=== PATIENT | female | born 1955 | race Caucasian/White ===

== ENCOUNTER 2019-06-03 09:01 | Inpatient (IN) | payer OTHER, MEDICARE ==
--- NOTE | 2019-06-03 09:11 | EDM.PDOC ---
"ED HPI GENERAL MEDICAL PROBLEM - General Chief Complaint: Respiratory Problem Stated Complaint: PER BECKY BUSTILLO Time Seen by Provider: 06/03/19 09:09 Source of Information: Reports: Patient, Old Records, Provider (Becky Bustillo NP ), RN, RN Notes Reviewed History Limitations: Reports: No Limitations - History of Present Illness INITIAL COMMENTS - FREE TEXT/NARRATIVE: Pt sent from clinic by wheelchair with supplemental oxygen by Becky Bustillo NP with report that pt has been experiencing progressively worsening shortness of breath for the past week or two. Pt had pneumonia and COPD exacerbation about a month ago at which time a chest x-ray show a right perihilar mass with recommendation for a follow up CT. Becky Bustillo NP reported to me via phone that the pt was due to have the CT Chest next week, but presented to the clinic today in respiratory distress with oxygen saturations of 87% on room air. Pt reports feeling flushed and hot this morning but hasn't measured her temperature. Pt report sharp chest pain with cough and deep inspiration for the last several days. Today she develops an intense ache between the shoulder blades. She admits to a cough with green sputum. She denies increasing edema, orthopnea, or palpitations. Denies syncope, but reports the she coughs so hard that she becomes lightheaded. Onset: Gradual Duration: Chronic, Constant, Getting Worse Location: Reports: Chest Quality: Reports: Ache Severity: Moderate Improves with: Reports: None Worsens with: Reports: Breathing Associated Symptoms: Reports: No Other Symptoms - Related Data Allergies Allergy/AdvReac Type Severity Reaction Status Date / Time acetaminophen Allergy Cannot Verified 06/03/19 09:12 [From Darvocet-N] Remember amoxicillin [Amoxicillin] Allergy Rash Verified 06/03/19 09:12 codeine Allergy Cannot Verified 06/03/19 09:12 Remember nitrofurantoin Allergy Cannot Verified 06/03/19 09:12 [From Macrobid] Remember nitrofurantoin Allergy Cannot Verified 06/03/19 09:12 macrocrystalline Remember [From Macrobid] propoxyphene napsylate Allergy Cannot Verified 06/03/19 09:12 [From Darvocet-N] Remember sulfamethoxazole Allergy Rash Verified 06/03/19 09:12 [From Bactrim] tramadol Allergy Cannot Verified 06/03/19 09:12 Remember trimethoprim [From Bactrim] Allergy Rash Verified 06/03/19 09:12 Home Meds: Home Meds Albuterol [Proair HFA] 2 puff INH Q4HR PRN 03/19/14 [History] Albuterol [Proventil Neb Soln] 1 unit INH Q4HR PRN 03/19/14 [History] Ascorbate Calcium/Bioflavonoid [Mariya-C 500 MG] 1 tab PO DAILY 03/19/14 [History ] Ca Carbonate/Vitamin D3/Vit K [Calcium + D Soft Chewable Tab] 1 tab PO DAILY [History] Ibuprofen [Motrin] 2 tab PO Q6HR PRN 03/19/14 [History] Lisinopril 10 mg PO DAILY 03/19/14 [History] Multivitamin [Multivitamins] 1 tab PO DAILY 03/19/14 [History] [place]-3/DHA/Epa/Fish Oil [Fish Oil 1,000 mg Softgel] 2 cap PO DAILY 03/19/14 [ History] Pantoprazole [Protonix] 40 mg PO DAILY 03/19/14 [History] Tolterodine Tartrate [Detrol LA] 4 mg PO DAILY 03/19/14 [History] Triamcinolone Acetonide [Kenalog 0.1% Oint] 80 gm TOP ASDIRECTED PRN 03/19/14 [ History] Aspirin [Ecotrin EC] 81 mg PO DAILY 06/03/19 [History] Benzonatate [Tessalon Perle] 2 cap PO Q6H PRN 06/03/19 [History] Boric Acid 1 applic TOP ASDIRECTED PRN 06/03/19 [History] Chlorthalidone 12.5 mg PO DAILY 06/03/19 [History] Clotrimazole [Lotrimin AF 1% Crm] 1 applic TOP ASDIRECTED PRN 06/03/19 [History] Gluc HCl/Csa/Brianna Hy/Hyalur Ac [Glucosamine Chondroitin] 2 cap PO DAILY [History] L.acidoph,Paracasei, B.lactis [Probiotic] 1 cap PO DAILY 06/03/19 [History] Past Medical History HEENT History: Reports: Hard of Hearing, Impaired Vision Cardiovascular History: Reports: Hypertension Respiratory History: Reports: COPD, SOB, Other (See Below) (Chronic terminal gauger tobacco/cigarette smoker. Right boni-hilar lung mass.) Musculoskeletal History: Reports: Other (See Below) (Chronic peripheral edema) Endocrine/Metabolic History: Reports: Obesity/BMI 30+ Social & Family History - Family History Family Medical History: Noncontributory - Tobacco Use Smoking Status *Q: Heavy Tobacco Smoker Tobacco Use Within Last Twelve Months: Cigarettes - Alcohol Use Alcohol Use History: No - Recreational Drug Use Recreational Drug Use: No - Living Situation & Occupation Living situation: Reports: with Family Occupation: Retired ED ROS GENERAL - Review of Systems Review Of Systems: ROS reveals no pertinent complaints other than HPI. ED EXAM, GENERAL - Physical Exam Exam: See Below Exam Limited By: No Limitations General Appearance: Alert, Mild Distress (Respiratory), Obese, Other ( Chronically ill, currently uncomfortable but non-toxic appearing) Eye Exam: Bilateral Eye: Normal Inspection Ears: Normal External Exam, Hearing Loss (Chronic/stable) Nose: Normal Inspection, Normal Mucosa, No Blood Throat/Mouth: Normal Lips, Normal Oropharynx, Normal Voice, No Airway Compromise Head: Atraumatic, Normocephalic Neck: Normal Inspection, Supple, Non-Tender, Full Range of Motion. No: Lymphadenopathy (L), Lymphadenopathy (R) Respiratory/Chest: Respiratory Distress, Decreased Breath Sounds, Crackles, Wheezing, Accessory Muscle Use (Labored breathing) Cardiovascular: Regular Rate, Rhythm GI/Abdominal: Normal Bowel Sounds, Soft, Non-Tender, Other (Benign obese abdomen ) (Female) Exam: Deferred Rectal (Female) Exam: Deferred Back Exam: Normal Inspection. No: CVA Tenderness (L), CVA Tenderness (R) Extremities: Normal Range of Motion, Non-Tender, Normal Capillary Refill, Pedal Edema (Chronic/stable per pt.). No: Joint Swelling Neurological: Alert, Oriented, CN II-XII Intact, Normal Cognition, No Motor/ Sensory Deficits Psychiatric: Normal Affect, Normal Mood Skin Exam: Warm, Dry, Intact, Normal Color, No Rash EKG INTERPRETATION EKG Date: 06/03/19 Time: 09:40 Rhythm: Other (SR) Rate (Beats/Min): 86 [place]: Normal P-Wave: Present QRS: Normal ST-T: Normal QT: Normal Comparison: NA - No Prior EKG EKG Interpretation Comments: No acute ischemic changes. Course - Vital Signs Last Recorded V/S: Last Vital Signs Temp 100 F 06/03/19 09:03 Pulse 90 06/03/19 09:32 Resp 28 H 06/03/19 09:03 BP 148/75 H 06/03/19 09:03 Pulse Ox 94 L 06/03/19 09:03 Oxygen saturation: 87% on room air. - Orders/Labs/Meds Orders: Active Orders 24 hr Category Date Time Status EKG 12 Lead [EKG Documentation Completion] [] STAT Care 06/03/19 09:11 Active Peripheral IV Care [RC] . DIRECTED Care 06/03/19 09:12 Active RT Aerosol Therapy [RC] ASDIRECTED Care 06/03/19 09:12 Active Chest w Cont [CT] Urgent Exams 06/03/19 10:17 Taken CULTURE BLOOD [BC] Stat Lab 06/03/19 09:17 Ordered CULTURE BLOOD [BC] Stat Lab 06/03/19 09:28 Received Levofloxacin/Dextrose 5%-Water [Levaquin in D5W 750 MG/ Med 06/03/19 10:17 Active 150 ML] 750 mg Premix Bag 1 bag IV ONETIME Sodium Chloride 0.9% [Saline Flush] Med 06/03/19 09:12 Active 10 ml FLUSH ASDIRECTED PRN Blood Culture x2 Reflex Set [OM.PC] Stat Oth 06/03/19 09:17 Ordered Peripheral IV Insertion Adult [OM.PC] Stat Oth 06/03/19 09:11 Ordered Medication Orders Levofloxacin/Dextrose 750 mg/ (Premix) 150 mls @ 100 mls/hr IV ONETIME ONE Stop: 06/03/19 11:46 Last Admin: 06/03/19 10:48 Dose: 100 mls/hr Sodium Chloride (Saline Flush) 10 ml FLUSH ASDIRECTED PRN PRN Reason: Keep Vein Open Last Admin: 06/03/19 09:31 Dose: 10 ml Labs: Laboratory Tests 06/03/19 06/03/19 06/03/19 Range/Units 09:38 09:38 09:38 WBC 13.2 H (5.0-10.0) 10^3/uL RBC 4.84 (4.2-5.4) 10^6/uL Hgb 14.6 (12.0-16.0) g/dL Hct 44.4 (37.0-47.0) % MCV 91.7 (80-100) fL MCH 30.2 (27.0-34.0) pg MCHC 32.9 L (33.0-35.0) g/dL Plt Count 253 (150-450) 10^3/uL Neut % (Auto) 71.1 (42.2-75.2) % Lymph % (Auto) 18.7 L (20.5-50.1) % [place] % (Auto) 9.5 H (2-8) % Eos % (Auto) 0.5 L (1.0-3.0) % Baso % (Auto) 0.2 (0.0-1.0) % D-Dimer, Quantitative 185 (0-400) ng/mL Sodium 133 L (135-145) mmol/L Potassium 3.6 (3.6-5.0) mmol/L Chloride 94 L (101-111) mmol/L Carbon Dioxide 27.0 (21.0-31.0) mmol/L Anion Gap 15.6 BUN 17 (7-18) mg/dL Creatinine 0.7 (0.6-1.3) mg/dL Est Cr Clr Drug Dosing 72.10 mL/min Estimated GFR (MDRD) > 60 BUN/Creatinine Ratio 24.28 Glucose 110 H (74-105) mg/dL Lactic Acid (0.5-2.2) mmol/L Calcium 9.0 (8.4-10.2) mg/dl Total Bilirubin 0.9 (0.2-1.0) mg/dL AST 22 (10-42) IU/L ALT 21 (10-60) IU/L Alkaline Phosphatase 46 (42-121) IU/L Troponin I < 0.02 (0.00-0.02) ng/ml B-Natriuretic Peptide 72 (0-100) pg/ml Total Protein 7.4 (6.7-8.2) g/dl Albumin 4.3 (3.2-5.5) g/dl Globulin 3.1 Albumin/Globulin Ratio 1.39 Lipase 24 (22-51) U/L 06/03/19 Range/Units 09:38 WBC (5.0-10.0) 10^3/uL RBC (4.2-5.4) 10^6/uL Hgb (12.0-16.0) g/dL Hct (37.0-47.0) % MCV (80-100) fL MCH (27.0-34.0) pg MCHC (33.0-35.0) g/dL Plt Count (150-450) 10^3/uL Neut % (Auto) (42.2-75.2) % Lymph % (Auto) (20.5-50.1) % [place] % (Auto) (2-8) % Eos % (Auto) (1.0-3.0) % Baso % (Auto) (0.0-1.0) % D-Dimer, Quantitative (0-400) ng/mL Sodium (135-145) mmol/L Potassium (3.6-5.0) mmol/L Chloride (101-111) mmol/L Carbon Dioxide (21.0-31.0) mmol/L Anion Gap BUN (7-18) mg/dL Creatinine (0.6-1.3) mg/dL Est Cr Clr Drug Dosing mL/min Estimated GFR (MDRD) BUN/Creatinine Ratio Glucose (74-105) mg/dL Lactic Acid 1.2 (0.5-2.2) mmol/L Calcium (8.4-10.2) mg/dl Total Bilirubin (0.2-1.0) mg/dL AST (10-42) IU/L ALT (10-60) IU/L Alkaline Phosphatase (42-121) IU/L Troponin I (0.00-0.02) ng/ml B-Natriuretic Peptide (0-100) pg/ml Total Protein (6.7-8.2) g/dl Albumin (3.2-5.5) g/dl Globulin Albumin/Globulin Ratio Lipase (22-51) U/L Meds: Medications Generic Name Dose Route Start Last Admin Trade Name Freq PRN Reason Stop Dose Admin Levofloxacin/Dextrose 750 mg/ 150 mls @ 100 mls/hr 06/03/19 10:17 06/03/19 10 :48 Premix IV 06/03/19 11:46 100 mls/hr ONETIME ONE Administration Sodium Chloride 10 ml 06/03/19 09:12 06/03/19 09:31 Saline Flush FLUSH 10 ml ASDIRECTED PRN Administration Keep Vein Open Discontinued Medications Generic Name Dose Route Start Last Admin Trade Name Freq PRN Reason Stop Dose Admin Albuterol/Ipratropium 3 ml 06/03/19 09:12 06/03/19 09:31 Duoneb 3.0-0.5 Mg/3 Ml NEB 06/03/19 09:13 3 ml ONETIME ONE Administration Albuterol/Ipratropium Confirm 06/03/19 09:17 06/03/19 09:31 Duoneb 3.0-0.5 Mg/3 Ml Administered 06/03/19 09:18 Not Given Dose 3 ml .ROUTE .STK-MED ONE Iopamidol 75 ml 06/03/19 10:16 06/03/19 10:36 Isovue-300 (61%) IVPUSH 06/03/19 10:17 75 ml ONETIME ONE Administration Methylprednisolone Sodium Succinate 125 mg 06/03/19 09:12 06/03/19 09:31 Solu-Medrol IVPUSH 06/03/19 09:13 125 mg ONETIME ONE Administration - Radiology Interpretation Free Text/Narrative:: [facility] Final Radiology Report Call: [phone] assistance Online chat: [email or web address] Name: JONO BENÍTEZ Age: 64Years F Date: 06/03/2019 SSN: -- : [id number] Study: CT CHEST W Requesting Physician: ANDREY IZQUIERDO Images: [id number] Addl Studies: Provided Clinical History: Contrast: With Contrast Medium: Isovue 300 Contrast Amount: 75 mL Contrast Method: IV Page 1 of 2 EXAM: CT Chest With Contrast EXAM DATE/TIME: 06/03/2019 10:36 AM CLINICAL HISTORY: 64 years old, female; Other: Cough, hypoxia, abn cxr, recent x-ray showing RT perihilar mass TECHNIQUE: Imaging protocol: Computed tomography of the chest with intravenous contrast. Radiation optimization: All CT scans at this facility use at least one of these dose optimization techniques: automated exposure control; mA and/or kV adjustment per patient size (includes targeted exams where dose is matched to clinical indication); or iterative reconstruction. Contrast material: ISOVUE 300; Contrast volume: 75 ml; Contrast route: IV; COMPARISON: CR CHEST PA/LAT 09/28/2012 12:15 PM FINDINGS: Lungs: Minimal patchy groundglass opacity in the right upper lobe anteriorly and in the right perihilar region which may reflect minimal infection or inflammation. No dense consolidation or stefany pulmonary edema. Central bronchial wall thickening minimal subpleural linear atelectasis or scar in the right middle lobe and right base posteriorly. Pleural space: Unremarkable. No pneumothorax. No pleural effusion. Heart: Coronary atherosclerosis. Heart size is normal. No pericardial effusion. Mediastinum: Small hiatal hernia. Central pulmonary arteries are patent. Aorta: Additional atherosclerotic change in the upper normal aorta Lymph nodes: Unremarkable. No enlarged lymph nodes. JONO BENÍTEZ | Final Radiology Report CONFIDENTIALITY STATEMENT This report is intended only for use by the referring physician, and only in accordance with law. If you received this in error, call [phone]. Page 2 of 2 Bones/joints: No acute osseous abnormality. No concerning osseous lesion. Multilevel degenerative disc disease. Soft tissues: Unremarkable. Pancreas: Diffuse pancreatic atrophy. IMPRESSION: 1. Minimal patchy groundglass opacity in the right upper lobe and right perihilar region which may reflect minimal infection or inflammation, superimposed on central bronchial wall thickening suggesting bronchitis. 2. Coronary and aortic atherosclerosis. Thank you for allowing us to participate in the care of your patient. Dictated and Authenticated by: Suzie Adam MD 06/03/2019 10:59 AM Central Time ([place] & [place]) Departure - Departure Time of Disposition: 10:55 (admitted to Dr. Colmenares) Disposition: Admitted As Inpatient 65 Condition: Fair, Serious Clinical Impression: Acute exacerbation of chronic obstructive pulmonary disease (COPD), Acute respiratory failure with hypoxia - Discharge Information *PRESCRIPTION DRUG MONITORING PROGRAM REVIEWED*: Not Applicable *COPY OF PRESCRIPTION DRUG MONITORING REPORT IN PATIENT FELICE: Not Applicable Forms: ED Department Discharge - My Orders Last 24 Hours: My Active Orders 06/03/19 09:11 EKG 12 Lead [EKG Documentation Completion] [RC] STAT Peripheral IV Insertion Adult [OM.PC] Stat 06/03/19 09:12 Peripheral IV Care [RC] . DIRECTED RT Aerosol Therapy [RC] ASDIRECTED Sodium Chloride 0.9% [Saline Flush] 10 ml FLUSH ASDIRECTED PRN 06/03/19 09:17 CULTURE BLOOD [BC] Stat Blood Culture x2 Reflex Set [OM.PC] Stat 06/03/19 09:28 CULTURE BLOOD [BC] Stat 06/03/19 10:17 Chest w Cont [CT] Urgent Levofloxacin/Dextrose 5%-Water [Levaquin in D5W 750 MG/150 ML] 750 mg Premix Bag 1 bag IV ONETIME - Assessment/Plan Last 24 Hours: My Active Orders 06/03/19 09:11 EKG 12 Lead [EKG Documentation Completion] [RC] STAT Peripheral IV Insertion Adult [OM.PC] Stat 06/03/19 09:12 Peripheral IV Care [RC] . DIRECTED RT Aerosol Therapy [RC] ASDIRECTED Sodium Chloride 0.9% [Saline Flush] 10 ml FLUSH ASDIRECTED PRN 06/03/19 09:17 CULTURE BLOOD [BC] Stat Blood Culture x2 Reflex Set [OM.PC] Stat 06/03/19 09:28 CULTURE BLOOD [BC] Stat 06/03/19 10:17 Chest w Cont [CT] Urgent Levofloxacin/Dextrose 5%-Water [Levaquin in D5W 750 MG/150 ML] 750 mg Premix Bag 1 bag IV ONETIME"
[2019-06-03] MEDS ORDERED: methylPREDNISolone Sodium Succinate 125 MG/2 ML SDV IVPUSH ONE (09:12)
[2019-06-03] MEDS ORDERED: Albuterol/Ipratropium 3.0-0.5 MG/3 ML Neb Soln NEB ONE (09:12)
[2019-06-03] MEDS ORDERED: Sodium Chloride 0.9% 10 ML Syringe FLUSH PRN (09:12)
[2019-06-03] MEDS ORDERED: Albuterol/Ipratropium 3.0-0.5 MG/3 ML Neb Soln ONE (09:17)
[2019-06-03 10:11] LABS: ANION GAP 15.6; CHLORIDE,CL 94 mmol/L (101-111); SODIUM,NA 133 mmol/L (135-145)
[2019-06-03] MEDS ORDERED: Iopamidol 612 MG/ML 75 ML Bottle IVPUSH ONE (10:16)
[2019-06-03] MEDS ORDERED: Levofloxacin/Dextrose 5%-Water 750 MG in Premix Bag 1 BAG IV ONE (10:17)
[2019-06-03] MEDS ORDERED: Benzonatate 100 MG Cap PO PRN (12:24)
[2019-06-03] MEDS ORDERED: Ibuprofen 400 MG Tab PO PRN (12:24)
[2019-06-03] MEDS ORDERED: Docusate Sodium 100 MG Cap PO PRN (12:28)
[2019-06-03] MEDS ORDERED: Ondansetron 4 MG/2 ML SDV IVPUSH PRN (12:28)
[2019-06-03] MEDS ORDERED: Ondansetron 4 MG Tab.DIS PO PRN (12:28)
[2019-06-03] MEDS ORDERED: Acetaminophen 325 MG Tab PO PRN (12:28)
--- NOTE | 2019-06-03 12:37 | PCM.HP ---
H&P History of Present Illness - General Date of Service: 06/03/19 Admit Problem/Dx: Admission Diagnosis/Problem Admission Diagnosis/Problem COPD, Mild chronic obstructive pulmonary disease Source of Information: Patient, Provider - History of Present Illness Initial Comments - Free Text/Narative: 64-year-old lady with a history of COPD, hypertension. She has had multiple episodes of pneumonia in the past few years. This did not require hospitalization but was treated as an outpatient. The patient was developing increasing shortness of breath in the past 2 weeks. She was treated with an outpatient round of azithromycin. Last night she was a getting increasing short of breath. This has subjective fever but did not check temperature. She has been coughing with green sputum production. Has chest pain with cough and pain in the back. No abdominal pain, no diarrhea. She went to the clinic where she was noted to have hypoxemia and was referred to the emergency room. - Related Data Allergies/Adverse Reactions: Allergies Allergy/AdvReac Type Severity Reaction Status Date / Time acetaminophen Allergy Cannot Verified 06/03/19 09:12 [From Darvocet-N] Remember amoxicillin [Amoxicillin] Allergy Rash Verified 06/03/19 09:12 codeine Allergy Cannot Verified 06/03/19 09:12 Remember levofloxacin Allergy Rash Verified 06/03/19 12:24 nitrofurantoin Allergy Cannot Verified 06/03/19 09:12 [From Macrobid] Remember nitrofurantoin Allergy Cannot Verified 06/03/19 09:12 macrocrystalline Remember [From Macrobid] propoxyphene napsylate Allergy Cannot Verified 06/03/19 09:12 [From Darvocet-N] Remember sulfamethoxazole Allergy Rash Verified 06/03/19 09:12 [From Bactrim] tramadol Allergy Cannot Verified 06/03/19 09:12 Remember trimethoprim [From Bactrim] Allergy Rash Verified 06/03/19 09:12 Home Medications: Home Meds Albuterol [Proair HFA] 2 puff INH Q4HR PRN 03/19/14 [History] Albuterol [Proventil Neb Soln] 1 unit INH Q4HR PRN 03/19/14 [History] Ascorbate Calcium/Bioflavonoid [Mariya-C 500 MG] 1 tab PO DAILY 03/19/14 [History ] Ca Carbonate/Vitamin D3/Vit K [Calcium + D Soft Chewable Tab] 1 tab PO DAILY [History] Ibuprofen [Motrin] 2 tab PO Q6HR PRN 03/19/14 [History] Lisinopril 10 mg PO DAILY 03/19/14 [History] Multivitamin [Multivitamins] 1 tab PO DAILY 03/19/14 [History] [place]-3/DHA/Epa/Fish Oil [Fish Oil 1,000 mg Softgel] 2 cap PO DAILY 03/19/14 [ History] Pantoprazole [Protonix] 40 mg PO DAILY 03/19/14 [History] Tolterodine Tartrate [Detrol LA] 4 mg PO DAILY 03/19/14 [History] Triamcinolone Acetonide [Kenalog 0.1% Oint] 80 gm TOP ASDIRECTED PRN 03/19/14 [ History] Aspirin [Ecotrin EC] 81 mg PO DAILY 06/03/19 [History] Benzonatate [Tessalon Perle] 2 cap PO Q6H PRN 06/03/19 [History] Boric Acid 1 applic TOP ASDIRECTED PRN 06/03/19 [History] Chlorthalidone 12.5 mg PO DAILY 06/03/19 [History] Clotrimazole [Lotrimin AF 1% Crm] 1 applic TOP ASDIRECTED PRN 06/03/19 [History] Gluc HCl/Csa/Brianna Hy/Hyalur Ac [Glucosamine Chondroitin] 2 cap PO DAILY [History] L.acidoph,Paracasei, B.lactis [Probiotic] 1 cap PO DAILY 06/03/19 [History] Past Medical History HEENT History: Reports: Hard of Hearing, Impaired Vision Cardiovascular History: Reports: Hypertension Respiratory History: Reports: COPD, SOB, Other (See Below) (Chronic senior care tobacco/cigarette smoker. Right boni-hilar lung mass.) Other Respiratory History: lung mass Gastrointestinal History: Reports: GERD, Other (See Below) Other Gastrointestinal History: fatty liver Genitourinary History: Reports: Other (See Below) Other Genitourinary History: Overactive bladder [employer]ER History: Reports: Other (See Below) Other OB/BYN History: tubal ligation Musculoskeletal History: Reports: Other (See Below) (Chronic peripheral edema) Endocrine/Metabolic History: Reports: Obesity/BMI 30+ Dermatologic History: Reports: Other (See Below) Other Dermatologic History: fungal infection right ear - Past Surgical History GI Surgical History: Reports: Appendectomy Social & Family History - Family History Family Medical History: Noncontributory - Tobacco Use Smoking Status *Q: Heavy Tobacco Smoker Years of Tobacco use: 30 Packs/Tins Daily: 0.5 - Caffeine Use Caffeine Use: Reports: Coffee, Soda - Recreational Drug Use Recreational Drug Use: No - Living Situation & Occupation Living situation: Reports: with Family Occupation: Retired H&P Review of Systems - Review of Systems: Review Of Systems: See Below General: Reports: Fever, Malaise, Weakness Pulmonary: Reports: Shortness of Breath, Wheezing Cardiovascular: Reports: Chest Pain (With cough). Denies: Edema Gastrointestinal: Denies: Abdominal Pain Genitourinary: Denies: Dysuria Psychiatric: Denies: Confusion Exam - Exam Exam: See Below - Vital Signs Vital Signs: Last Vital Signs Temp 37.7 C 06/03/19 11:46 Pulse 83 06/03/19 11:46 Resp 26 H 06/03/19 11:46 BP 144/78 H 06/03/19 11:46 Pulse Ox 93 L 06/03/19 11:46 Weight: 105.551 kg - Exam Quality Assessment: Supplemental Oxygen General: Alert, Oriented Neck: Supple Lungs: Wheezing, Other (Increased respiratory 4) Cardiovascular: Regular Rate, Regular Rhythm GI/Abdominal Exam: Normal Bowel Sounds, Soft, Non-Tender Extremities: No Pedal Edema - Patient Data Lab Results Last 24 hrs: Laboratory Results - last 24 hr 06/03/19 06/03/19 06/03/19 Range/Units 09:38 09:38 09:38 WBC 13.2 H (5.0-10.0) 10^3/uL RBC 4.84 (4.2-5.4) 10^6/uL Hgb 14.6 (12.0-16.0) g/dL Hct 44.4 (37.0-47.0) % MCV 91.7 (80-100) fL MCH 30.2 (27.0-34.0) pg MCHC 32.9 L (33.0-35.0) g/dL Plt Count 253 (150-450) 10^3/uL Neut % (Auto) 71.1 (42.2-75.2) % Lymph % (Auto) 18.7 L (20.5-50.1) % [place] % (Auto) 9.5 H (2-8) % Eos % (Auto) 0.5 L (1.0-3.0) % Baso % (Auto) 0.2 (0.0-1.0) % D-Dimer, Quantitative 185 (0-400) ng/mL Sodium 133 L (135-145) mmol/L Potassium 3.6 (3.6-5.0) mmol/L Chloride 94 L (101-111) mmol/L Carbon Dioxide 27.0 (21.0-31.0) mmol/L Anion Gap 15.6 BUN 17 (7-18) mg/dL Creatinine 0.7 (0.6-1.3) mg/dL Est Cr Clr Drug Dosing 72.10 mL/min Estimated GFR (MDRD) > 60 BUN/Creatinine Ratio 24.28 Glucose 110 H (74-105) mg/dL Lactic Acid (0.5-2.2) mmol/L Calcium 9.0 (8.4-10.2) mg/dl Total Bilirubin 0.9 (0.2-1.0) mg/dL AST 22 (10-42) IU/L ALT 21 (10-60) IU/L Alkaline Phosphatase 46 (42-121) IU/L Troponin I < 0.02 (0.00-0.02) ng/ml B-Natriuretic Peptide 72 (0-100) pg/ml Total Protein 7.4 (6.7-8.2) g/dl Albumin 4.3 (3.2-5.5) g/dl Globulin 3.1 Albumin/Globulin Ratio 1.39 Lipase 24 (22-51) U/L 06/03/19 Range/Units 09:38 WBC (5.0-10.0) 10^3/uL RBC (4.2-5.4) 10^6/uL Hgb (12.0-16.0) g/dL Hct (37.0-47.0) % MCV (80-100) fL MCH (27.0-34.0) pg MCHC (33.0-35.0) g/dL Plt Count (150-450) 10^3/uL Neut % (Auto) (42.2-75.2) % Lymph % (Auto) (20.5-50.1) % [place] % (Auto) (2-8) % Eos % (Auto) (1.0-3.0) % Baso % (Auto) (0.0-1.0) % D-Dimer, Quantitative (0-400) ng/mL Sodium (135-145) mmol/L Potassium (3.6-5.0) mmol/L Chloride (101-111) mmol/L Carbon Dioxide (21.0-31.0) mmol/L Anion Gap BUN (7-18) mg/dL Creatinine (0.6-1.3) mg/dL Est Cr Clr Drug Dosing mL/min Estimated GFR (MDRD) BUN/Creatinine Ratio Glucose (74-105) mg/dL Lactic Acid 1.2 (0.5-2.2) mmol/L Calcium (8.4-10.2) mg/dl Total Bilirubin (0.2-1.0) mg/dL AST (10-42) IU/L ALT (10-60) IU/L Alkaline Phosphatase (42-121) IU/L Troponin I (0.00-0.02) ng/ml B-Natriuretic Peptide (0-100) pg/ml Total Protein (6.7-8.2) g/dl Albumin (3.2-5.5) g/dl Globulin Albumin/Globulin Ratio Lipase (22-51) U/L Result Diagrams: 06/03/19 09:38 06/03/19 09:38 - Problem List (1) Acute exacerbation of chronic obstructive pulmonary disease (COPD) SNOMED Code(s): 058778736 ICD Code: J44.1 - CHRONIC OBSTRUCTIVE PULMONARY DISEASE W (ACUTE) EXACERBATION Status: Acute Current Visit: No Problem List Initiated/Reviewed/Updated: Yes Orders Last 24hrs: Active Orders 24 hr Category Date Time Status Admission Diagnosis [ADT] Routine ADT 06/03/19 11:23 Ordered Patient Status [ADT] Routine ADT 06/03/19 11:23 Active Antiembolic Devices [RC] PER UNIT ROUTINE Care 06/03/19 12:30 Ordered Oxygen Therapy [RC] PRN Care 06/03/19 12:28 Ordered Peripheral IV Care [RC] . DIRECTED Care 06/03/19 09:12 Active RT Aerosol Therapy [RC] ASDIRECTED Care 06/03/19 09:12 Active RT Aerosol Therapy [RC] ASDIRECTED Care 06/03/19 11:56 Active RT Aerosol Therapy [RC] ASDIRECTED Care 06/03/19 11:57 Active Up With Assistance [RC] ASDIRECTED Care 06/03/19 12:28 Ordered VTE/DVT Education [RC] PER UNIT ROUTINE Care 06/03/19 12:28 Ordered Vital Signs [RC] Q4H Care 06/03/19 12:28 Ordered Regular Diet [DIET] Diet 06/03/19 Dinner Ordered BASIC METABOLIC PANEL,BMP [CHEM] AM Lab 06/04/19 05:11 Ordered CBC WITH AUTO DIFF [HEME] AM Lab 06/04/19 05:11 Ordered CULTURE BLOOD [BC] Stat Lab 06/03/19 09:17 Ordered CULTURE BLOOD [BC] Stat Lab 06/03/19 09:28 Received MAGNESIUM [CHEM] AM Lab 06/04/19 05:11 Ordered PHOSPHORUS [CHEM] AM Lab 06/04/19 05:11 Ordered Albuterol/Ipratropium [DuoNeb 3.0-0.5 MG/3 ML] Med 06/03/19 11:57 Ordered 3 ml NEB Q2H PRN Albuterol/Ipratropium [DuoNeb 3.0-0.5 MG/3 ML] Med 06/03/19 13:00 Ordered 3 ml NEB Q6HRRT Aspirin [Halfprin] Med 06/04/19 09:00 Ordered 81 mg PO DAILY Azithromycin [Zithromax] 500 mg Med 06/03/19 12:15 Ordered Sodium Chloride 0.9% [Normal Saline] 250 ml IV Q24H Benzonatate [Tessalon Perles] Med 06/03/19 12:24 Ordered 2 cap PO Q6H PRN Budesonide [Pulmicort] Med 06/03/19 18:00 Ordered 0.5 mg NEB BIDRT Chlorthalidone Med 06/04/19 09:00 Ordered 12.5 mg PO DAILY Docusate Sodium [Colace] Med 06/03/19 12:28 Ordered 100 mg PO BID PRN Heparin Sodium Med 06/03/19 14:00 Ordered 5,000 units SUBCUT Q8HR Ibuprofen [Motrin] Med 06/03/19 12:24 Ordered 800 mg PO Q6HR PRN Lisinopril [Prinivil] Med 06/04/19 09:00 Ordered 10 mg PO DAILY Ondansetron [Zofran ODT] Med 06/03/19 12:28 Ordered 4 mg PO Q6H PRN Ondansetron [Zofran] Med 06/03/19 12:28 Ordered 4 mg IVPUSH Q6H PRN Pantoprazole [ProTONIX] Med 06/04/19 09:00 Ordered 40 mg PO DAILY Sodium Chloride 0.9% [Saline Flush] Med 06/03/19 09:12 Active 10 ml FLUSH ASDIRECTED PRN Sodium Chloride 0.9% [Saline Flush] Med 06/03/19 12:28 Ordered 10 ml FLUSH ASDIRECTED PRN Tolterodine Tartrate [Detrol LA] Med 06/04/19 09:00 Ordered 4 mg PO DAILY Zolpidem [Ambien] Med 06/03/19 12:28 Ordered 5 mg PO BEDTIME PRN methylPREDNISolone Sod Succ [Solu-MEDROL] Med 06/03/19 15:00 Ordered 40 mg IVPUSH Q8H Antiembolic Hose [OM.PC] Per Unit Routine Oth 06/03/19 12:29 Ordered Blood Culture x2 Reflex Set [OM.PC] Stat Oth 06/03/19 09:17 Ordered Peripheral IV Insertion Adult [OM.PC] Stat Oth 06/03/19 09:11 Ordered Saline Lock Insert [OM.PC] Routine Oth 06/03/19 12:28 Ordered Resuscitation Status Routine Resus Stat 06/03/19 12:28 Ordered Medication Orders Albuterol/Ipratropium (Duoneb 3.0-0.5 Mg/3 Ml) 3 ml NEB Q2H PRN PRN Reason: sob Albuterol/Ipratropium (Duoneb 3.0-0.5 Mg/3 Ml) 3 ml NEB Q6HRRT [facility] Aspirin (Halfprin) 81 mg PO DAILY [facility] Benzonatate (Tessalon Perles) mg PO Q6H PRN PRN Reason: Cough Budesonide (Pulmicort) 0.5 mg NEB BIDRT [facility] Chlorthalidone (Chlorthalidone) 12.5 mg PO DAILY [facility] Docusate Sodium (Colace) 100 mg PO BID PRN PRN Reason: Constipation Heparin Sodium (Porcine) (Heparin Sodium) 5,000 units SUBCUT Q8HR [facility] Azithromycin 500 mg/ Sodium (Chloride) 250 mls @ 250 mls/hr IV Q24H [facility] Ibuprofen (Motrin) 800 mg PO Q6HR PRN PRN Reason: Pain Lisinopril (Prinivil) 10 mg PO DAILY [facility] Methylprednisolone Sodium Succinate (Solu-Medrol) 40 mg IVPUSH Q8H [facility] Non-Formulary Medication (Tolterodine Tartrate [Detrol La]) 4 mg PO DAILY [facility] Ondansetron HCl (Zofran Odt) 4 mg PO Q6H PRN PRN Reason: nausea, able to take PO Ondansetron HCl (Zofran) 4 mg IVPUSH Q6H PRN PRN Reason: Nausea/Vomiting Pantoprazole Sodium (Protonix) 40 mg PO DAILY [facility] Sodium Chloride (Saline Flush) 10 ml FLUSH ASDIRECTED PRN PRN Reason: Keep Vein Open Last Admin: 06/03/19 09:31 Dose: 10 ml Sodium Chloride (Saline Flush) 10 ml FLUSH ASDIRECTED PRN PRN Reason: Keep Vein Open Zolpidem Tartrate (Ambien) 5 mg PO BEDTIME PRN PRN Reason: Sleep Assessment/Plan Comment:: 64-year-old lady with a history of frequent pneumonia, COPD, hypertension presented with shortness of breath. Was noted to have wheezing, leukocytosis, hypoxemia Acute hypoxemic respiratory failure We'll supplement oxygen as needed Acute COPD exacerbation We'll treat with IV Solu-Medrol Give scheduled and when necessary DuoNeb Acute bronchitis Check sputum culture Check blood culture The patient has multiple antibiotic allergies. She was started on levofloxacin in the emergency room but developed hives on the arm where the infusion was going and facial flushing. Will use IV azithromycin that she tolerated in the past Hypertension Treat with chlorthalidone and lisinopril DVT prophylaxis with subcutaneous heparin Discussed with the emergency room physician Dr. Torres
[2019-06-03] MEDS: Albuterol/Ipratropium 3.0-0.5 MG/3 ML Neb Soln NEB SCH ×2 (13:14→17:50)
[2019-06-03] MEDS ORDERED: Albuterol/Ipratropium 3.0-0.5 MG/3 ML Neb Soln NEB PRN (14:00)
[2019-06-03] MEDS: Azithromycin 500 MG in Sodium Chloride 0.9% 250 ML IV SCH (15:30)
[2019-06-03] MEDS: Heparin Sodium 5,000 Units/ML Vial SUBCUT SCH ×2 (15:30→22:42)
[2019-06-03] MEDS: methylPREDNISolone Sodium Succinate 40 MG/1 ML SDV IVPUSH SCH ×2 (15:30→22:41)
[2019-06-03] MEDS: Budesonide 0.5 MG/2 ML Neb Susp NEB SCH (17:50)
[2019-06-03] MEDS: Zolpidem 5 MG Tab PO PRN (22:42)
[2019-06-04] MEDS: Albuterol/Ipratropium 3.0-0.5 MG/3 ML Neb Soln NEB SCH ×4 (00:39→18:05)
[2019-06-04] MEDS: Heparin Sodium 5,000 Units/ML Vial SUBCUT SCH ×3 (05:46→21:25)
[2019-06-04] MEDS: Pantoprazole 40 MG Tab.CR PO SCH (05:47)
[2019-06-04 07:03] LABS: ANION GAP 15.6; CHLORIDE,CL 92 mmol/L (101-111); SODIUM,NA 133 mmol/L (135-145)
[2019-06-04] MEDS: Budesonide 0.5 MG/2 ML Neb Susp NEB SCH ×2 (07:27→18:05)
[2019-06-04] MEDS: methylPREDNISolone Sodium Succinate 40 MG/1 ML SDV IVPUSH SCH ×3 (07:59→23:49)
[2019-06-04] MEDS: Sodium Chloride 0.9% 10 ML Syringe FLUSH PRN ×6 (07:59→23:49)
[2019-06-04] MEDS: Lisinopril 20 MG Tab PO SCH (09:50)
[2019-06-04] MEDS: Chlorthalidone 25 MG Tab PO SCH (09:51)
[2019-06-04] MEDS: Aspirin 81 MG Tab.EC PO SCH (09:51)
[2019-06-04] MEDS: Tolterodine 2 MG Cap.ER PO SCH (09:51)
--- NOTE | 2019-06-04 11:45 | PCM.PN ---
- General Info Date of Service: 06/04/19 Admission Dx/Problem (Free Text): Admission Diagnosis/Problem Admission Diagnosis/Problem COPD, Mild chronic obstructive pulmonary disease Subjective Update: Continues to have shortness of breath. Associated with wheezing. Worse with activity. Better with nebulizers and oxygen supplement. No fever. Tolerating diet, no chest pain, no abdominal pain. Functional Status: Reports: Pain Controlled, Tolerating Diet - Review of Systems General: Denies: Fever Pulmonary: Reports: Shortness of Breath, Cough, Sputum, Wheezing Cardiovascular: Denies: Chest Pain, Edema Neurological: Denies: Confusion - Patient Data Vitals - Most Recent: Last Vital Signs Temp 36.6 C 06/04/19 11:36 Pulse 84 06/04/19 11:36 Resp 20 06/04/19 11:36 BP 136/65 06/04/19 11:36 Pulse Ox 94 L 06/04/19 11:36 Weight - Most Recent: 105.551 kg I&O - Last 24 Hours: Intake & Output 06/03/19 06/04/19 06/04/19 22:59 06:59 14:59 Intake Total 600 510 500 Output Total 1000 1200 Balance -400 -690 500 Lab Results Last 24 Hours: Laboratory Results - last 24 hr 06/04/19 06/04/19 Range/Units 06:20 06:20 WBC 7.9 (5.0-10.0) 10^3/uL RBC 4.33 (4.2-5.4) 10^6/uL Hgb 13.0 D (12.0-16.0) g/dL Hct 39.7 (37.0-47.0) % MCV 91.7 (80-100) fL MCH 30.0 (27.0-34.0) pg MCHC 32.7 L (33.0-35.0) g/dL Plt Count 239 (150-450) 10^3/uL Neut % (Auto) 78.0 H (42.2-75.2) % Lymph % (Auto) 16.4 L (20.5-50.1) % [place] % (Auto) 5.5 (2-8) % Eos % (Auto) 0.0 L (1.0-3.0) % Baso % (Auto) 0.1 (0.0-1.0) % Sodium 133 L (135-145) mmol/L Potassium 3.6 (3.6-5.0) mmol/L Chloride 92 L (101-111) mmol/L Carbon Dioxide 29.0 (21.0-31.0) mmol/L Anion Gap 15.6 BUN 17 (7-18) mg/dL Creatinine 0.7 (0.6-1.3) mg/dL Est Cr Clr Drug Dosing 72.10 mL/min Estimated GFR (MDRD) > 60 Glucose 150 H (74-105) mg/dL Calcium 8.7 (8.4-10.2) mg/dl Phosphorus 3.8 (2.5-4.6) mg/dL Magnesium 1.8 (1.8-2.5) mg/dL [place] Results Last 24 Hours: Microbiology 06/03/19 09:28 Aerobic Blood Culture - Preliminary Blood - Venous NO GROWTH AFTER 1 DAY Anaerobic Blood Culture - Preliminary NO GROWTH AFTER 1 DAY 06/03/19 09:38 Aerobic Blood Culture - Preliminary Blood - Venous - Lab Draw NO GROWTH AFTER 1 DAY Anaerobic Blood Culture - Preliminary NO GROWTH AFTER 1 DAY 06/04/19 06:55 Gram Stain - Final Sputum - Expectorated Med Orders - Current: Current Medications Albuterol/Ipratropium (Duoneb 3.0-0.5 Mg/3 Ml) 3 ml NEB Q2HR PRN PRN Reason: sob Albuterol/Ipratropium (Duoneb 3.0-0.5 Mg/3 Ml) 3 ml NEB Q6HRRT [facility] Last Admin: 06/04/19 07:27 Dose: 3 ml Aspirin (Halfprin) 81 mg PO DAILY [facility] Last Admin: 06/04/19 09:51 Dose: 81 mg Benzonatate (Tessalon Perles) 200 mg PO Q6H PRN PRN Reason: Cough Budesonide (Pulmicort) 0.5 mg NEB BIDRT [facility] Last Admin: 06/04/19 07:27 Dose: 0.5 mg Chlorthalidone (Chlorthalidone) 12.5 mg PO DAILY [facility] Last Admin: 06/04/19 09:51 Dose: 12.5 mg Docusate Sodium (Colace) 100 mg PO BID PRN PRN Reason: Constipation Heparin Sodium (Porcine) (Heparin Sodium) 5,000 units SUBCUT Q8HR [facility] Last Admin: 06/04/19 05:46 Dose: 5,000 units Azithromycin 500 mg/ Sodium (Chloride) 250 mls @ 250 mls/hr IV Q24H [facility] Last Infusion: 06/03/19 17:22 Dose: Infused Ibuprofen (Motrin) 800 mg PO Q6HR PRN PRN Reason: Pain (mild 1-3) Last Admin: 06/03/19 19:30 Dose: 800 mg Lisinopril (Prinivil) 10 mg PO DAILY [facility] Last Admin: 06/04/19 09:50 Dose: 10 mg Methylprednisolone Sodium Succinate (Solu-Medrol) 40 mg IVPUSH Q8H [facility] Last Admin: 06/04/19 07:59 Dose: 40 mg Ondansetron HCl (Zofran Odt) 4 mg PO Q6H PRN PRN Reason: nausea, able to take PO Ondansetron HCl (Zofran) 4 mg IVPUSH Q6H PRN PRN Reason: Nausea/Vomiting Pantoprazole Sodium (Protonix) 40 mg PO ACBREAKFAST [facility] Last Admin: 06/04/19 05:47 Dose: 40 mg Sodium Chloride (Saline Flush) 10 ml FLUSH ASDIRECTED PRN PRN Reason: Keep Vein Open Last Admin: 06/04/19 07:59 Dose: 10 ml Tolterodine Tartrate (Detrol La 24 Hr) 4 mg PO DAILY [facility] Last Admin: 06/04/19 09:51 Dose: 4 mg Zolpidem Tartrate (Ambien) 5 mg PO BEDTIME PRN PRN Reason: Sleep Last Admin: 06/03/19 22:42 Dose: 5 mg Discontinued Medications Acetaminophen (Tylenol) 650 mg PO Q4H PRN PRN Reason: Pain (Mild 1-3)/fever Albuterol/Ipratropium (Duoneb 3.0-0.5 Mg/3 Ml) 3 ml NEB ONETIME ONE Stop: 06/03/19 09:13 Last Admin: 06/03/19 09:31 Dose: 3 ml Albuterol/Ipratropium (Duoneb 3.0-0.5 Mg/3 Ml) Confirm Administered Dose 3 ml .ROUTE .STK-MED ONE Stop: 06/03/19 09:18 Last Admin: 06/03/19 09:31 Dose: Not Given Levofloxacin/Dextrose 750 mg/ (Premix) 150 mls @ 100 mls/hr IV ONETIME ONE Stop: 06/03/19 11:46 Last Infusion: 06/03/19 11:10 Dose: 100 mls/hr Iopamidol (Isovue-300 (61%)) 75 ml IVPUSH ONETIME ONE Stop: 06/03/19 10:17 Last Admin: 06/03/19 10:36 Dose: 75 ml Methylprednisolone Sodium Succinate (Solu-Medrol) 125 mg IVPUSH ONETIME ONE Stop: 06/03/19 09:13 Last Admin: 06/03/19 09:31 Dose: 125 mg Sodium Chloride (Saline Flush) 10 ml FLUSH ASDIRECTED PRN PRN Reason: Keep Vein Open Last Admin: 06/03/19 09:31 Dose: 10 ml - Exam General: Alert, Oriented Neck: Supple Lungs: Wheezing Cardiovascular: Regular Rate, Regular Rhythm GI/Abdominal Exam: Normal Bowel Sounds, Soft, Non-Tender Extremities: Pedal Edema (Trace bilateral) - Problem List & Annotations (1) Acute exacerbation of chronic obstructive pulmonary disease (COPD) SNOMED Code(s): 201536634 Code(s): J44.1 - CHRONIC OBSTRUCTIVE PULMONARY DISEASE W (ACUTE) EXACERBATION Status: Acute Current Visit: No - Problem List Review Problem List Initiated/Reviewed/Updated: Yes - My Orders Last 24 Hours: My Active Orders 06/03/19 11:56 RT Aerosol Therapy [RC] ASDIRECTED 06/03/19 11:57 RT Aerosol Therapy [RC] ASDIRECTED 06/03/19 12:24 Benzonatate [Tessalon Perles] 200 mg PO Q6H PRN Ibuprofen [Motrin] 800 mg PO Q6HR PRN 06/03/19 12:28 Oxygen Therapy [RC] PRN Up With Assistance [RC] ASDIRECTED VTE/DVT Education [RC] PER UNIT ROUTINE Vital Signs [RC] 07,11,15,19,23,03 Docusate Sodium [Colace] 100 mg PO BID PRN Ondansetron [Zofran ODT] 4 mg PO Q6H PRN Ondansetron [Zofran] 4 mg IVPUSH Q6H PRN Sodium Chloride 0.9% [Saline Flush] 10 ml FLUSH ASDIRECTED PRN Saline Lock Insert [OM.PC] Routine Resuscitation Status Routine 06/03/19 12:29 Antiembolic Hose [OM.PC] Per Unit Routine 06/03/19 12:30 Antiembolic Devices [RC] PER UNIT ROUTINE 06/03/19 13:00 Albuterol/Ipratropium [DuoNeb 3.0-0.5 MG/3 ML] 3 ml NEB Q6HRRT 06/03/19 14:00 Albuterol/Ipratropium [DuoNeb 3.0-0.5 MG/3 ML] 3 ml NEB Q2HR PRN Azithromycin [Zithromax] 500 mg Sodium Chloride 0.9% [Normal Saline] 250 ml IV Q24H Heparin Sodium 5,000 units SUBCUT Q8HR 06/03/19 15:00 methylPREDNISolone Sod Succ [Solu-MEDROL] 40 mg IVPUSH Q8H 06/03/19 18:00 Budesonide [Pulmicort] 0.5 mg NEB BIDRT 06/03/19 18:31 Communication Order [RC] DAILY 06/03/19 21:00 Zolpidem [Ambien] 5 mg PO BEDTIME PRN 06/03/19 Dinner Regular Diet [DIET] 06/04/19 06:00 Pantoprazole [ProTONIX] 40 mg PO ACBREAKFAST 06/04/19 09:00 Aspirin [Halfprin] 81 mg PO DAILY Chlorthalidone 12.5 mg PO DAILY Lisinopril [Prinivil] 10 mg PO DAILY Tolterodine [Detrol LA 24 Hr] 4 mg PO DAILY 06/04/19 11:05 Flutter Valve Therapy [RT Chest Physiotherapy] [RC] ASDIRECTED IS (RT) [RT Incentive Spirometry] [RC] ASDIRECTED 06/04/19 11:41 Patient Status [ADT] Routine - Plan Plan:: 64-year-old lady with a history of frequent pneumonia, COPD, hypertension presented with shortness of breath. Was noted to have wheezing, leukocytosis, hypoxemia Acute hypoxemic respiratory failure We'll supplement oxygen as needed Acute COPD exacerbation We'll treat with IV Solu-Medrol Give scheduled and when necessary DuoNeb Started Pulmicort Acute bronchitis Pending sputum culture Pending blood culture The patient has multiple antibiotic allergies. She was started on levofloxacin in the emergency room but developed hives on the arm where the infusion was going and facial flushing. Will use IV azithromycin that she tolerated in the past Hypertension Treat with chlorthalidone and lisinopril DVT prophylaxis with subcutaneous heparin
[2019-06-04] MEDS: Azithromycin 500 MG in Sodium Chloride 0.9% 250 ML IV SCH (14:10)
[2019-06-04] MEDS ORDERED: LORazepam 0.5 MG Tab PO PRN (15:06)
[2019-06-04] MEDS: Zolpidem 5 MG Tab PO PRN (21:29)
[2019-06-05] MEDS: Albuterol/Ipratropium 3.0-0.5 MG/3 ML Neb Soln NEB SCH ×4 (01:20→18:02)
[2019-06-05] MEDS: Heparin Sodium 5,000 Units/ML Vial SUBCUT SCH ×3 (06:08→21:20)
[2019-06-05] MEDS: Pantoprazole 40 MG Tab.CR PO SCH (06:09)
[2019-06-05] MEDS: Budesonide 0.5 MG/2 ML Neb Susp NEB SCH ×2 (07:10→18:02)
[2019-06-05 07:21] LABS: ANION GAP 15.1; CHLORIDE,CL 95 mmol/L (101-111); SODIUM,NA 137 mmol/L (135-145)
[2019-06-05] MEDS: Tolterodine 2 MG Cap.ER PO SCH (08:28)
[2019-06-05] MEDS: methylPREDNISolone Sodium Succinate 40 MG/1 ML SDV IVPUSH SCH (08:28)
[2019-06-05] MEDS: Chlorthalidone 25 MG Tab PO SCH (08:28)
[2019-06-05] MEDS: Aspirin 81 MG Tab.EC PO SCH (08:29)
[2019-06-05] MEDS: Lisinopril 20 MG Tab PO SCH (08:29)
[2019-06-05] MEDS: predniSONE 20 MG Tab PO SCH (11:15)
[2019-06-05] MEDS: Nicotine 21 MG/24 Hr Patch TRDERM SCH (11:16)
--- NOTE | 2019-06-05 12:04 | PCM.PN ---
- General Info Date of Service: 06/05/19 Admission Dx/Problem (Free Text): Admission Diagnosis/Problem Admission Diagnosis/Problem COPD, Mild chronic obstructive pulmonary disease Subjective Update: Continues to have shortness of breath. Associated with wheezing. Worse with activity. Better with nebulizers and oxygen supplement. No fever. Tolerating diet, no chest pain, no abdominal pain. Functional Status: Reports: Pain Controlled - Review of Systems General: Reports: No Symptoms HEENT: Reports: No Symptoms Pulmonary: Reports: Shortness of Breath Cardiovascular: Reports: No Symptoms Gastrointestinal: Reports: No Symptoms Genitourinary: Reports: No Symptoms Musculoskeletal: Reports: No Symptoms Skin: Reports: No Symptoms Neurological: Reports: No Symptoms - Patient Data Vitals - Most Recent: Last Vital Signs Temp 36.6 C 06/05/19 08:32 Pulse 88 06/05/19 08:32 Resp 20 06/05/19 08:32 BP 134/79 06/05/19 08:32 Pulse Ox 94 L 06/05/19 08:32 Weight - Most Recent: 104.961 kg I&O - Last 24 Hours: Intake & Output 06/04/19 06/05/19 06/05/19 22:59 06:59 14:59 Intake Total 1878 560 Output Total 3050 1800 1100 Balance -1172 -1800 -540 Lab Results Last 24 Hours: Laboratory Results - last 24 hr 06/05/19 06/05/19 Range/Units 06:30 06:30 WBC 14.6 H (5.0-10.0) 10^3/uL RBC 4.57 (4.2-5.4) 10^6/uL Hgb 13.9 (12.0-16.0) g/dL Hct 41.9 (37.0-47.0) % MCV 91.7 (80-100) fL MCH 30.4 (27.0-34.0) pg MCHC 33.2 (33.0-35.0) g/dL Plt Count 249 (150-450) 10^3/uL Neut % (Auto) 84.4 H (42.2-75.2) % Lymph % (Auto) 8.9 L (20.5-50.1) % Crowley % (Auto) 6.6 (2-8) % Eos % (Auto) 0.0 L (1.0-3.0) % Baso % (Auto) 0.1 (0.0-1.0) % Sodium 137 (135-145) mmol/L Potassium 4.1 (3.6-5.0) mmol/L Chloride 95 L (101-111) mmol/L Carbon Dioxide 31.0 (21.0-31.0) mmol/L Anion Gap 15.1 BUN 21 H (7-18) mg/dL Creatinine 0.7 (0.6-1.3) mg/dL Est Cr Clr Drug Dosing 72.10 mL/min Estimated GFR (MDRD) > 60 Glucose 142 H (74-105) mg/dL Calcium 8.9 (8.4-10.2) mg/dl [place] Results Last 24 Hours: Microbiology 06/03/19 09:28 Aerobic Blood Culture - Preliminary Blood - Venous NO GROWTH AFTER 2 DAYS Anaerobic Blood Culture - Preliminary NO GROWTH AFTER 2 DAYS 06/03/19 09:38 Aerobic Blood Culture - Preliminary Blood - Venous - Lab Draw NO GROWTH AFTER 2 DAYS Anaerobic Blood Culture - Preliminary NO GROWTH AFTER 2 DAYS 06/04/19 06:55 Gram Stain - Final Sputum - Expectorated Sputum Culture - Preliminary NORMAL RESPIRATORY VALERY 1 DAY Med Orders - Current: Current Medications Albuterol/Ipratropium (Duoneb 3.0-0.5 Mg/3 Ml) 3 ml NEB Q2HR PRN PRN Reason: sob Albuterol/Ipratropium (Duoneb 3.0-0.5 Mg/3 Ml) 3 ml NEB Q6HRRT [facility] Last Admin: 06/05/19 07:10 Dose: 3 ml Aspirin (Halfprin) 81 mg PO DAILY [facility] Last Admin: 06/05/19 08:29 Dose: 81 mg Benzonatate (Tessalon Perles) 200 mg PO Q6H PRN PRN Reason: Cough Budesonide (Pulmicort) 0.5 mg NEB BIDRT [facility] Last Admin: 06/05/19 07:10 Dose: 0.5 mg Chlorthalidone (Chlorthalidone) 12.5 mg PO DAILY [facility] Last Admin: 06/05/19 08:28 Dose: 12.5 mg Docusate Sodium (Colace) 100 mg PO BID PRN PRN Reason: Constipation Heparin Sodium (Porcine) (Heparin Sodium) 5,000 units SUBCUT Q8HR [facility] Last Admin: 06/05/19 06:08 Dose: 5,000 units Azithromycin 500 mg/ Sodium (Chloride) 250 mls @ 250 mls/hr IV Q24H [facility] Last Infusion: 06/04/19 15:20 Dose: Infused Ibuprofen (Motrin) 800 mg PO Q6HR PRN PRN Reason: Pain (mild 1-3) Last Admin: 06/03/19 19:30 Dose: 800 mg Lisinopril (Prinivil) 10 mg PO DAILY [facility] Last Admin: 06/05/19 08:29 Dose: 10 mg Lorazepam (Ativan) 0.5 mg PO Q6H PRN PRN Reason: Anxiety Nicotine (Habitrol) 21 mg TRDERM DAILY [facility] Last Admin: 06/05/19 11:16 Dose: 21 mg Ondansetron HCl (Zofran Odt) 4 mg PO Q6H PRN PRN Reason: nausea, able to take PO Ondansetron HCl (Zofran) 4 mg IVPUSH Q6H PRN PRN Reason: Nausea/Vomiting Pantoprazole Sodium (Protonix) 40 mg PO ACBREAKFAST [facility] Last Admin: 06/05/19 06:09 Dose: 40 mg Prednisone (Prednisone) 50 mg PO WITHBREAKFAST [facility] Last Admin: 06/05/19 11:15 Dose: 50 mg Sodium Chloride (Saline Flush) 10 ml FLUSH ASDIRECTED PRN PRN Reason: Keep Vein Open Last Admin: 06/04/19 23:49 Dose: 10 ml Tolterodine Tartrate (Detrol La 24 Hr) 4 mg PO DAILY [facility] Last Admin: 06/05/19 08:28 Dose: 4 mg Zolpidem Tartrate (Ambien) 5 mg PO BEDTIME PRN PRN Reason: Sleep Last Admin: 06/04/19 21:29 Dose: 5 mg Discontinued Medications Acetaminophen (Tylenol) 650 mg PO Q4H PRN PRN Reason: Pain (Mild 1-3)/fever Albuterol/Ipratropium (Duoneb 3.0-0.5 Mg/3 Ml) 3 ml NEB ONETIME ONE Stop: 06/03/19 09:13 Last Admin: 06/03/19 09:31 Dose: 3 ml Albuterol/Ipratropium (Duoneb 3.0-0.5 Mg/3 Ml) Confirm Administered Dose 3 ml .ROUTE .STK-MED ONE Stop: 06/03/19 09:18 Last Admin: 06/03/19 09:31 Dose: Not Given Levofloxacin/Dextrose 750 mg/ (Premix) 150 mls @ 100 mls/hr IV ONETIME ONE Stop: 06/03/19 11:46 Last Infusion: 06/03/19 11:10 Dose: 100 mls/hr Iopamidol (Isovue-300 (61%)) 75 ml IVPUSH ONETIME ONE Stop: 06/03/19 10:17 Last Admin: 06/03/19 10:36 Dose: 75 ml Methylprednisolone Sodium Succinate (Solu-Medrol) 125 mg IVPUSH ONETIME ONE Stop: 06/03/19 09:13 Last Admin: 06/03/19 09:31 Dose: 125 mg Methylprednisolone Sodium Succinate (Solu-Medrol) 40 mg IVPUSH Q8H [facility] Last Admin: 06/05/19 08:28 Dose: 40 mg Sodium Chloride (Saline Flush) 10 ml FLUSH ASDIRECTED PRN PRN Reason: Keep Vein Open Last Admin: 06/03/19 09:31 Dose: 10 ml - Exam General: Alert, Oriented HEENT: Pupils Equal Neck: Supple Lungs: Clear to Auscultation, Wheezing (mild wheezing) Cardiovascular: Regular Rate, Regular Rhythm, No Murmurs GI/Abdominal Exam: Normal Bowel Sounds, Soft, Non-Tender Extremities: Normal Inspection, Normal Range of Motion, Non-Tender, No Pedal Edema - Problem List Review Problem List Initiated/Reviewed/Updated: Yes - My Orders Last 24 Hours: My Active Orders 06/05/19 10:00 predniSONE 50 mg PO WITHBREAKFAST 06/05/19 10:30 Nicotine [Habitrol] 21 mg TRDERM DAILY - Plan Plan:: 64-year-old lady with a history of frequent pneumonia, COPD, hypertension presented with shortness of breath. Was noted to have wheezing, leukocytosis, hypoxemia Acute hypoxemic respiratory failure We'll supplement oxygen as needed Acute COPD exacerbation We'll treat with IV Solu-Medrol Give scheduled and when necessary DuoNeb Started Pulmicort Cigarette smoking start nicotine patch Acute bronchitis Pending sputum culture Pending blood culture The patient has multiple antibiotic allergies. She was started on levofloxacin in the emergency room but developed hives on the arm where the infusion was going and facial flushing. Will use IV azithromycin that she tolerated in the past Hypertension Treat with chlorthalidone and lisinopril DVT prophylaxis with subcutaneous heparin
[2019-06-05] MEDS: Azithromycin 500 MG in Sodium Chloride 0.9% 250 ML IV SCH (13:57)
[2019-06-05] MEDS: Sodium Chloride 0.9% 10 ML Syringe FLUSH PRN ×2 (13:58→21:22)
[2019-06-05] MEDS: Zolpidem 5 MG Tab PO PRN (21:22)
[2019-06-06] MEDS: Albuterol/Ipratropium 3.0-0.5 MG/3 ML Neb Soln NEB SCH ×4 (02:07→17:44)
[2019-06-06] MEDS: Pantoprazole 40 MG Tab.CR PO SCH (05:28)
[2019-06-06] MEDS: Heparin Sodium 5,000 Units/ML Vial SUBCUT SCH ×2 (05:28→14:29)
[2019-06-06] MEDS: Chlorthalidone 25 MG Tab PO SCH (08:34)
[2019-06-06] MEDS: predniSONE 20 MG Tab PO SCH (08:36)
[2019-06-06] MEDS: Aspirin 81 MG Tab.EC PO SCH (08:38)
[2019-06-06] MEDS: Tolterodine 2 MG Cap.ER PO SCH (08:38)
[2019-06-06] MEDS: Lisinopril 20 MG Tab PO SCH (08:39)
[2019-06-06] MEDS: Budesonide 0.5 MG/2 ML Neb Susp NEB SCH ×2 (09:00→17:44)
[2019-06-06] MEDS: Nicotine 21 MG/24 Hr Patch TRDERM SCH (10:18)
--- NOTE | 2019-06-06 11:00 | PCM.PN ---
- General Info Date of Service: 06/06/19 Admission Dx/Problem (Free Text): Admission Diagnosis/Problem Admission Diagnosis/Problem COPD, Mild chronic obstructive pulmonary disease Subjective Update: SOB is improving. Will need one or two more days of treatment Tolerating diet, no chest pain, no abdominal pain. - Review of Systems General: Reports: No Symptoms HEENT: Reports: No Symptoms Pulmonary: Reports: Shortness of Breath Cardiovascular: Reports: No Symptoms Gastrointestinal: Reports: No Symptoms Genitourinary: Reports: No Symptoms Musculoskeletal: Reports: No Symptoms Skin: Reports: No Symptoms - Patient Data Vitals - Most Recent: Last Vital Signs Temp 37.3 C 06/06/19 10:36 Pulse 87 06/06/19 10:36 Resp 18 06/06/19 10:36 BP 129/71 06/06/19 10:36 Pulse Ox 96 06/06/19 10:36 Weight - Most Recent: 104.961 kg I&O - Last 24 Hours: Intake & Output 06/05/19 06/06/19 06/06/19 22:59 06:59 14:59 Intake Total 2638 1000 600 Output Total 1750 2000 600 Balance 888 -1000 0 [place] Results Last 24 Hours: Microbiology 06/03/19 09:28 Aerobic Blood Culture - Preliminary Blood - Venous NO GROWTH AFTER 3 DAYS Anaerobic Blood Culture - Preliminary NO GROWTH AFTER 3 DAYS 06/03/19 09:38 Aerobic Blood Culture - Preliminary Blood - Venous - Lab Draw NO GROWTH AFTER 3 DAYS Anaerobic Blood Culture - Preliminary NO GROWTH AFTER 3 DAYS 06/04/19 06:55 Gram Stain - Final Sputum - Expectorated Sputum Culture - Preliminary Yeast Med Orders - Current: Current Medications Albuterol/Ipratropium (Duoneb 3.0-0.5 Mg/3 Ml) 3 ml NEB Q2HR PRN PRN Reason: sob Albuterol/Ipratropium (Duoneb 3.0-0.5 Mg/3 Ml) 3 ml NEB Q6HRRT [facility] Last Admin: 06/06/19 07:09 Dose: 3 ml Aspirin (Halfprin) 81 mg PO DAILY [facility] Last Admin: 06/06/19 08:38 Dose: 81 mg Benzonatate (Tessalon Perles) 200 mg PO Q6H PRN PRN Reason: Cough Budesonide (Pulmicort) 0.5 mg NEB BIDRT [facility] Last Admin: 06/05/19 18:02 Dose: 0.5 mg Chlorthalidone (Chlorthalidone) 12.5 mg PO DAILY [facility] Last Admin: 06/06/19 08:34 Dose: 12.5 mg Docusate Sodium (Colace) 100 mg PO BID PRN PRN Reason: Constipation Heparin Sodium (Porcine) (Heparin Sodium) 5,000 units SUBCUT Q8HR [facility] Last Admin: 06/06/19 05:28 Dose: 5,000 units Azithromycin 500 mg/ Sodium (Chloride) 250 mls @ 250 mls/hr IV Q24H [facility] Last Infusion: 06/05/19 17:29 Dose: Infused Ibuprofen (Motrin) 800 mg PO Q6HR PRN PRN Reason: Pain (mild 1-3) Last Admin: 06/03/19 19:30 Dose: 800 mg Lisinopril (Prinivil) 10 mg PO DAILY [facility] Last Admin: 06/06/19 08:39 Dose: 10 mg Lorazepam (Ativan) 0.5 mg PO Q6H PRN PRN Reason: Anxiety Nicotine (Habitrol) 21 mg TRDERM DAILY [facility] Last Admin: 06/06/19 10:18 Dose: 21 mg Ondansetron HCl (Zofran Odt) 4 mg PO Q6H PRN PRN Reason: nausea, able to take PO Ondansetron HCl (Zofran) 4 mg IVPUSH Q6H PRN PRN Reason: Nausea/Vomiting Pantoprazole Sodium (Protonix) 40 mg PO ACBREAKFAST [facility] Last Admin: 06/06/19 05:28 Dose: 40 mg Prednisone (Prednisone) 50 mg PO WITHBREAKFAST [facility] Last Admin: 06/06/19 08:36 Dose: 50 mg Sodium Chloride (Saline Flush) 10 ml FLUSH ASDIRECTED PRN PRN Reason: Keep Vein Open Last Admin: 06/05/19 21:22 Dose: 10 ml Tolterodine Tartrate (Detrol La 24 Hr) 4 mg PO DAILY [facility] Last Admin: 06/06/19 08:38 Dose: 4 mg Zolpidem Tartrate (Ambien) 5 mg PO BEDTIME PRN PRN Reason: Sleep Last Admin: 06/05/19 21:22 Dose: 5 mg Discontinued Medications Acetaminophen (Tylenol) 650 mg PO Q4H PRN PRN Reason: Pain (Mild 1-3)/fever Albuterol/Ipratropium (Duoneb 3.0-0.5 Mg/3 Ml) 3 ml NEB ONETIME ONE Stop: 06/03/19 09:13 Last Admin: 06/03/19 09:31 Dose: 3 ml Albuterol/Ipratropium (Duoneb 3.0-0.5 Mg/3 Ml) Confirm Administered Dose 3 ml .ROUTE .STK-MED ONE Stop: 06/03/19 09:18 Last Admin: 06/03/19 09:31 Dose: Not Given Levofloxacin/Dextrose 750 mg/ (Premix) 150 mls @ 100 mls/hr IV ONETIME ONE Stop: 06/03/19 11:46 Last Infusion: 06/03/19 11:10 Dose: 100 mls/hr Iopamidol (Isovue-300 (61%)) 75 ml IVPUSH ONETIME ONE Stop: 06/03/19 10:17 Last Admin: 06/03/19 10:36 Dose: 75 ml Methylprednisolone Sodium Succinate (Solu-Medrol) 125 mg IVPUSH ONETIME ONE Stop: 06/03/19 09:13 Last Admin: 06/03/19 09:31 Dose: 125 mg Methylprednisolone Sodium Succinate (Solu-Medrol) 40 mg IVPUSH Q8H [facility] Last Admin: 06/05/19 08:28 Dose: 40 mg Sodium Chloride (Saline Flush) 10 ml FLUSH ASDIRECTED PRN PRN Reason: Keep Vein Open Last Admin: 06/03/19 09:31 Dose: 10 ml - Exam General: Alert, Oriented HEENT: Pupils Equal, Pupils Reactive Lungs: Wheezing Cardiovascular: Regular Rate, Regular Rhythm GI/Abdominal Exam: Normal Bowel Sounds, Soft, Non-Tender Extremities: Normal Inspection, Normal Range of Motion, Non-Tender, No Pedal Edema - Problem List Review Problem List Initiated/Reviewed/Updated: Yes - My Orders Last 24 Hours: My Active Orders 06/05/19 10:00 predniSONE 50 mg PO WITHBREAKFAST 06/05/19 10:30 Nicotine [Habitrol] 21 mg TRDERM DAILY - Plan Plan:: 64-year-old lady with a history of frequent pneumonia, COPD, hypertension presented with shortness of breath. Was noted to have wheezing, leukocytosis, hypoxemia Acute hypoxemic respiratory failure We'll supplement oxygen as needed Acute COPD exacerbation We'll treat with IV Solu-Medrol Give scheduled and when necessary DuoNeb Started Pulmicort Cigarette smoking start nicotine patch Hypertension Treat with chlorthalidone and lisinopril DVT prophylaxis with subcutaneous heparin
[2019-06-06] MEDS: Azithromycin 500 MG in Sodium Chloride 0.9% 250 ML IV SCH (14:37)
[2019-06-06] MEDS: Sodium Chloride 0.9% 10 ML Syringe FLUSH PRN (20:49)
[2019-06-06] MEDS: Zolpidem 5 MG Tab PO PRN (20:52)
[2019-06-07] MEDS: Albuterol/Ipratropium 3.0-0.5 MG/3 ML Neb Soln NEB SCH ×4 (00:29→18:08)
[2019-06-07] MEDS: Pantoprazole 40 MG Tab.CR PO SCH (06:07)
[2019-06-07] MEDS: Budesonide 0.5 MG/2 ML Neb Susp NEB SCH ×2 (07:09→18:08)
[2019-06-07] MEDS: Tolterodine 2 MG Cap.ER PO SCH (08:53)
[2019-06-07] MEDS: Chlorthalidone 25 MG Tab PO SCH (08:53)
[2019-06-07] MEDS: predniSONE 20 MG Tab PO SCH (08:53)
[2019-06-07] MEDS: Nicotine 21 MG/24 Hr Patch TRDERM SCH (08:53)
[2019-06-07] MEDS: Aspirin 81 MG Tab.EC PO SCH (08:53)
[2019-06-07] MEDS: Lisinopril 20 MG Tab PO SCH (08:53)
--- NOTE | 2019-06-07 13:35 | PCM.PN ---
- General Info Date of Service: 06/07/19 Admission Dx/Problem (Free Text): Admission Diagnosis/Problem Admission Diagnosis/Problem COPD, Mild chronic obstructive pulmonary disease Subjective Update: unable to wean off oxygen. Will get walking desat SOB is improving. Will need one or two more days of treatment Tolerating diet, no chest pain, no abdominal pain. - Review of Systems General: Reports: No Symptoms HEENT: Reports: No Symptoms Pulmonary: Reports: Shortness of Breath Cardiovascular: Reports: No Symptoms Gastrointestinal: Reports: No Symptoms Genitourinary: Reports: No Symptoms Musculoskeletal: Reports: No Symptoms Skin: Reports: No Symptoms - Patient Data Vitals - Most Recent: Last Vital Signs Temp 36.4 C 06/07/19 07:00 Pulse 74 06/07/19 07:09 Resp 20 06/07/19 07:00 BP 125/72 06/07/19 08:53 Pulse Ox 93 L 06/07/19 07:00 Weight - Most Recent: 104.961 kg I&O - Last 24 Hours: Intake & Output 06/06/19 06/07/19 06/07/19 22:59 06:59 14:59 Intake Total 940 1200 240 Output Total 1500 2500 Balance -560 -1300 240 [place] Results Last 24 Hours: Microbiology 06/03/19 09:28 Aerobic Blood Culture - Preliminary Blood - Venous NO GROWTH AFTER 4 DAYS Anaerobic Blood Culture - Preliminary NO GROWTH AFTER 4 DAYS 06/03/19 09:38 Aerobic Blood Culture - Preliminary Blood - Venous - Lab Draw NO GROWTH AFTER 4 DAYS Anaerobic Blood Culture - Preliminary NO GROWTH AFTER 4 DAYS 06/04/19 06:55 Gram Stain - Final Sputum - Expectorated Sputum Culture - Final Yeast Med Orders - Current: Current Medications Albuterol/Ipratropium (Duoneb 3.0-0.5 Mg/3 Ml) 3 ml NEB Q2HR PRN PRN Reason: sob Albuterol/Ipratropium (Duoneb 3.0-0.5 Mg/3 Ml) 3 ml NEB Q6HRRT [facility] Last Admin: 06/07/19 07:09 Dose: 3 ml Aspirin (Halfprin) 81 mg PO DAILY [facility] Last Admin: 06/07/19 08:53 Dose: 81 mg Benzonatate (Tessalon Perles) 200 mg PO Q6H PRN PRN Reason: Cough Budesonide (Pulmicort) 0.5 mg NEB BIDRT [facility] Last Admin: 06/07/19 07:09 Dose: 0.5 mg Chlorthalidone (Chlorthalidone) 12.5 mg PO DAILY [facility] Last Admin: 06/07/19 08:53 Dose: 12.5 mg Docusate Sodium (Colace) 100 mg PO BID PRN PRN Reason: Constipation Heparin Sodium (Porcine) (Heparin Sodium) 5,000 units SUBCUT Q8HR [facility] Last Admin: 06/06/19 14:29 Dose: Not Given Azithromycin 500 mg/ Sodium (Chloride) 250 mls @ 250 mls/hr IV Q24H [facility] Last Admin: 06/06/19 14:37 Dose: 250 mls/hr Ibuprofen (Motrin) 800 mg PO Q6HR PRN PRN Reason: Pain (mild 1-3) Last Admin: 06/03/19 19:30 Dose: 800 mg Lisinopril (Prinivil) 10 mg PO DAILY [facility] Last Admin: 06/07/19 08:53 Dose: 10 mg Lorazepam (Ativan) 0.5 mg PO Q6H PRN PRN Reason: Anxiety Nicotine (Habitrol) 21 mg TRDERM DAILY [facility] Last Admin: 06/07/19 08:53 Dose: 21 mg Ondansetron HCl (Zofran Odt) 4 mg PO Q6H PRN PRN Reason: nausea, able to take PO Ondansetron HCl (Zofran) 4 mg IVPUSH Q6H PRN PRN Reason: Nausea/Vomiting Pantoprazole Sodium (Protonix) 40 mg PO ACBREAKFAST [facility] Last Admin: 06/07/19 06:07 Dose: 40 mg Prednisone (Prednisone) 50 mg PO WITHBREAKFAST [facility] Last Admin: 06/07/19 08:53 Dose: 50 mg Sodium Chloride (Saline Flush) 10 ml FLUSH ASDIRECTED PRN PRN Reason: Keep Vein Open Last Admin: 06/06/19 20:49 Dose: 10 ml Tolterodine Tartrate (Detrol La 24 Hr) 4 mg PO DAILY [facility] Last Admin: 06/07/19 08:53 Dose: 4 mg Zolpidem Tartrate (Ambien) 5 mg PO BEDTIME PRN PRN Reason: Sleep Last Admin: 06/06/19 20:52 Dose: 5 mg Discontinued Medications Acetaminophen (Tylenol) 650 mg PO Q4H PRN PRN Reason: Pain (Mild 1-3)/fever Albuterol/Ipratropium (Duoneb 3.0-0.5 Mg/3 Ml) 3 ml NEB ONETIME ONE Stop: 06/03/19 09:13 Last Admin: 06/03/19 09:31 Dose: 3 ml Albuterol/Ipratropium (Duoneb 3.0-0.5 Mg/3 Ml) Confirm Administered Dose 3 ml .ROUTE .STK-MED ONE Stop: 06/03/19 09:18 Last Admin: 06/03/19 09:31 Dose: Not Given Levofloxacin/Dextrose 750 mg/ (Premix) 150 mls @ 100 mls/hr IV ONETIME ONE Stop: 06/03/19 11:46 Last Infusion: 06/03/19 11:10 Dose: 100 mls/hr Iopamidol (Isovue-300 (61%)) 75 ml IVPUSH ONETIME ONE Stop: 06/03/19 10:17 Last Admin: 06/03/19 10:36 Dose: 75 ml Methylprednisolone Sodium Succinate (Solu-Medrol) 125 mg IVPUSH ONETIME ONE Stop: 06/03/19 09:13 Last Admin: 06/03/19 09:31 Dose: 125 mg Methylprednisolone Sodium Succinate (Solu-Medrol) 40 mg IVPUSH Q8H [facility] Last Admin: 06/05/19 08:28 Dose: 40 mg Sodium Chloride (Saline Flush) 10 ml FLUSH ASDIRECTED PRN PRN Reason: Keep Vein Open Last Admin: 06/03/19 09:31 Dose: 10 ml - Exam General: Alert, Oriented HEENT: Pupils Equal Neck: Supple Lungs: Clear to Auscultation, Wheezing (improved) Cardiovascular: Regular Rate, Regular Rhythm GI/Abdominal Exam: Normal Bowel Sounds, Soft, Non-Tender, No Organomegaly Extremities: Normal Inspection, Normal Range of Motion, Non-Tender, No Pedal Edema - Problem List Review Problem List Initiated/Reviewed/Updated: Yes - My Orders Last 24 Hours: My Active Orders 06/07/19 10:10 6 Minute Walk Test [RT Physical Performance Test] [RESPCARE] Routine - Plan Plan:: 64-year-old lady with a history of frequent pneumonia, COPD, hypertension presented with shortness of breath. Was noted to have wheezing, leukocytosis, hypoxemia Acute hypoxemic respiratory failure We'll supplement oxygen as needed walking desat today and arrange for home oxygen Acute COPD exacerbation We'll treat with IV Solu-Medrol Give scheduled and when necessary DuoNeb Continue Pulmicort Cigarette smoking start nicotine patch Hypertension Treat with chlorthalidone and lisinopril DVT prophylaxis with subcutaneous heparin
[2019-06-07] MEDS: Azithromycin 500 MG in Sodium Chloride 0.9% 250 ML IV SCH (14:53)
[2019-06-07] MEDS: Zolpidem 5 MG Tab PO PRN (21:34)
[2019-06-08] MEDS: Albuterol/Ipratropium 3.0-0.5 MG/3 ML Neb Soln NEB SCH ×2 (02:04→07:11)
[2019-06-08] MEDS: Pantoprazole 40 MG Tab.CR PO SCH (06:48)
[2019-06-08] MEDS: Budesonide 0.5 MG/2 ML Neb Susp NEB SCH (07:14)
[2019-06-08] MEDS: Chlorthalidone 25 MG Tab PO SCH (08:31)
[2019-06-08] MEDS: Tolterodine 2 MG Cap.ER PO SCH (08:31)
[2019-06-08] MEDS: Aspirin 81 MG Tab.EC PO SCH (08:32)
[2019-06-08] MEDS: predniSONE 20 MG Tab PO SCH (08:33)
[2019-06-08] MEDS: Lisinopril 20 MG Tab PO SCH (08:33)
[2019-06-08] MEDS: Nicotine 21 MG/24 Hr Patch TRDERM SCH (08:34)
[2019-06-08] MEDS: Sodium Chloride 0.9% 10 ML Syringe FLUSH PRN (08:36)
[2019-06-08] MEDS ORDERED: Pneumococcal Polyvalent-23 Vaccine 0.5 ML SDV SUBCUT ONE (10:28)
--- NOTE | 2019-06-08 11:58 | PCM.DCSUM1 ---
Discharge Summary - Hospital Course Free Text/Narrative:: 64-year-old lady with a history of COPD, hypertension, cigarette smoking admitted with SOB. Was managed for COPD exacerbation with COPD protocol Had a walking desat during admission. Patient was 85% on RA at rest, she walked and desatted to 84%. Oxygen was applied and 3LPM and she recovered to 91%. She was prescribed oxygen at 3LPM with activity via nasal canula and conserving device. Short course steroid prescribed at discharge. Diagnosis: Stroke: No Modified [place] Scale: No Symptoms at All Modified Nas Scale Score: 0 - Discharge Data Discharge Date: 06/08/19 Discharge Disposition: Home, Self-Care 01 Condition: Stable - Referral to Home Health Primary Care Physician: KLARISSA Banegas - Patient Instructions Diet: Usual Diet as Tolerated Activity: As Tolerated Other/Special Instructions: Stop smoking - Discharge Plan *PRESCRIPTION DRUG MONITORING PROGRAM REVIEWED*: Not Applicable *COPY OF PRESCRIPTION DRUG MONITORING REPORT IN PATIENT FELICE: Not Applicable Prescriptions/Med Rec: predniSONE 50 mg PO WITHBREAKFAST 7 Days #7 tablet Home Medications: Home Meds Albuterol [Proair HFA] 2 puff INH Q4HR PRN 03/19/14 [History] Albuterol [Proventil Neb Soln] 1 unit INH Q4HR PRN 03/19/14 [History] Ascorbate Calcium/Bioflavonoid [Mariya-C 500 MG] 1 tab PO DAILY 03/19/14 [History ] Lisinopril 10 mg PO DAILY 03/19/14 [History] Multivitamin [Multivitamins] 1 tab PO DAILY 03/19/14 [History] Pantoprazole [ProTONIX] 40 mg PO DAILY 03/19/14 [History] Tolterodine Tartrate [Detrol LA] 4 mg PO DAILY 03/19/14 [History] Triamcinolone Acetonide [Kenalog 0.1% Oint] 80 gm TOP ASDIRECTED PRN 03/19/14 [ History] Aspirin [Ecotrin EC] 81 mg PO DAILY 06/03/19 [History] Benzonatate [Tessalon Perle] 2 cap PO Q6H PRN 06/03/19 [History] Boric Acid 1 applic TOP ASDIRECTED PRN 06/03/19 [History] Chlorthalidone 12.5 mg PO DAILY 06/03/19 [History] Gluc HCl/Csa/Brianna Hy/Hyalur Ac [Glucosamine Chondroitin] 2 cap PO DAILY [History] L.acidoph,Paracasei, B.lactis [Probiotic] 1 cap PO DAILY 06/03/19 [History] predniSONE 50 mg PO WITHBREAKFAST 7 Days #7 tablet 06/08/19 [Rx] Forms: ED Department Discharge Referrals: Ita Bustillo PA [Primary Care Provider] - - Discharge Summary/Plan Comment DC Time >30 min.: Yes - Patient Data Vitals - Most Recent: Last Vital Signs Temp 36.5 C 06/08/19 08:01 Pulse 87 06/08/19 08:01 Resp 20 06/08/19 08:01 BP 149/86 H 06/08/19 08:33 Pulse Ox 93 L 06/08/19 08:01 Weight - Most Recent: 104.961 kg I&O - Last 24 hours: Intake & Output 06/07/19 06/08/19 06/08/19 22:59 06:59 14:59 Intake Total 250 565 Output Total 2000 Balance -1750 565 FRANK Results - Last 24 hrs: Microbiology 06/03/19 09:28 Aerobic Blood Culture - Final Blood - Venous NO GROWTH AFTER 5 DAYS Anaerobic Blood Culture - Final NO GROWTH AFTER 5 DAYS 06/03/19 09:38 Aerobic Blood Culture - Final Blood - Venous - Lab Draw NO GROWTH AFTER 5 DAYS Anaerobic Blood Culture - Final NO GROWTH AFTER 5 DAYS Med Orders - Current: Current Medications Albuterol/Ipratropium (Duoneb 3.0-0.5 Mg/3 Ml) 3 ml NEB Q2HR PRN PRN Reason: sob Albuterol/Ipratropium (Duoneb 3.0-0.5 Mg/3 Ml) 3 ml NEB Q6HRRT [facility] Last Admin: 06/08/19 07:11 Dose: 3 ml Aspirin (Halfprin) 81 mg PO DAILY [facility] Last Admin: 06/08/19 08:32 Dose: 81 mg Benzonatate (Tessalon Perles) 200 mg PO Q6H PRN PRN Reason: Cough Last Admin: 06/08/19 10:22 Dose: 200 mg Budesonide (Pulmicort) 0.5 mg NEB BIDRT [facility] Last Admin: 06/08/19 07:14 Dose: 0.5 mg Chlorthalidone (Chlorthalidone) 12.5 mg PO DAILY [facility] Last Admin: 06/08/19 08:31 Dose: 12.5 mg Docusate Sodium (Colace) 100 mg PO BID PRN PRN Reason: Constipation Heparin Sodium (Porcine) (Heparin Sodium) 5,000 units SUBCUT Q8HR [facility] Last Admin: 06/06/19 14:29 Dose: Not Given Azithromycin 500 mg/ Sodium (Chloride) 250 mls @ 250 mls/hr IV Q24H [facility] Last Infusion: 06/07/19 16:37 Dose: Infused Ibuprofen (Motrin) 800 mg PO Q6HR PRN PRN Reason: Pain (mild 1-3) Last Admin: 06/03/19 19:30 Dose: 800 mg Lisinopril (Prinivil) 10 mg PO DAILY [facility] Last Admin: 06/08/19 08:33 Dose: 10 mg Lorazepam (Ativan) 0.5 mg PO Q6H PRN PRN Reason: Anxiety Nicotine (Habitrol) 21 mg TRDERM DAILY [facility] Last Admin: 06/08/19 08:34 Dose: 21 mg Ondansetron HCl (Zofran Odt) 4 mg PO Q6H PRN PRN Reason: nausea, able to take PO Ondansetron HCl (Zofran) 4 mg IVPUSH Q6H PRN PRN Reason: Nausea/Vomiting Pantoprazole Sodium (Protonix) 40 mg PO ACBREAKFAST [facility] Last Admin: 06/08/19 06:48 Dose: 40 mg Prednisone (Prednisone) 50 mg PO WITHBREAKFAST [facility] Last Admin: 06/08/19 08:33 Dose: 50 mg Sodium Chloride (Saline Flush) 10 ml FLUSH ASDIRECTED PRN PRN Reason: Keep Vein Open Last Admin: 06/08/19 08:36 Dose: 10 ml Tolterodine Tartrate (Detrol La 24 Hr) 4 mg PO DAILY [facility] Last Admin: 06/08/19 08:31 Dose: 4 mg Zolpidem Tartrate (Ambien) 5 mg PO BEDTIME PRN PRN Reason: Sleep Last Admin: 06/07/19 21:34 Dose: 5 mg Discontinued Medications Acetaminophen (Tylenol) 650 mg PO Q4H PRN PRN Reason: Pain (Mild 1-3)/fever Albuterol/Ipratropium (Duoneb 3.0-0.5 Mg/3 Ml) 3 ml NEB ONETIME ONE Stop: 06/03/19 09:13 Last Admin: 06/03/19 09:31 Dose: 3 ml Albuterol/Ipratropium (Duoneb 3.0-0.5 Mg/3 Ml) Confirm Administered Dose 3 ml .ROUTE .STK-MED ONE Stop: 06/03/19 09:18 Last Admin: 06/03/19 09:31 Dose: Not Given Levofloxacin/Dextrose 750 mg/ (Premix) 150 mls @ 100 mls/hr IV ONETIME ONE Stop: 06/03/19 11:46 Last Infusion: 06/03/19 11:10 Dose: 100 mls/hr Iopamidol (Isovue-300 (61%)) 75 ml IVPUSH ONETIME ONE Stop: 06/03/19 10:17 Last Admin: 06/03/19 10:36 Dose: 75 ml Methylprednisolone Sodium Succinate (Solu-Medrol) 125 mg IVPUSH ONETIME ONE Stop: 06/03/19 09:13 Last Admin: 06/03/19 09:31 Dose: 125 mg Methylprednisolone Sodium Succinate (Solu-Medrol) 40 mg IVPUSH Q8H JACOBO Last Admin: 06/05/19 08:28 Dose: 40 mg Pneumococcal Polyvalent Vaccine (Pneumovax 23) 0.5 ml SUBCUT .ONCE ONE Stop: 06/08/19 10:29 Last Admin: 06/08/19 11:19 Dose: 0.5 ml Sodium Chloride (Saline Flush) 10 ml FLUSH ASDIRECTED PRN PRN Reason: Keep Vein Open Last Admin: 06/03/19 09:31 Dose: 10 ml
--- NOTE | 2019-06-12 11:29 | PCM.SN ---
- Free Text/Narrative Note: Nebulizer prescribed for COPD
== END 2019-06-08 13:30 | disposition home or self-care (01) | DRG 189 ==
LOC: DL.ED 09:01 → DL.MS 11:23 → OBSVTOIN 06-04 11:41
PROVIDERS: ADMIT Internal Medicine; ATTEND Hospitalist
DX: J96.01 Acute respiratory failure with hypoxia (principal); J44.0 Chronic obstructive pulmonary disease with (acute) lower respiratory infection; J44.1 Chronic obstructive pulmonary disease with (acute) exacerbation; J20.9 Acute bronchitis, unspecified; F17.210 Nicotine dependence, cigarettes, uncomplicated; K21.9 Gastro-esophageal reflux disease without esophagitis; E66.9 Obesity, unspecified; I10 Essential (primary) hypertension; Z79.52 Long term (current) use of systemic steroids; Z79.82 Long term (current) use of aspirin; Z88.0 Allergy status to penicillin; Z88.6 Allergy status to analgesic agent; Z88.1 Allergy status to other antibiotic agents; Z88.2 Allergy status to sulfonamides; Z23 Encounter for immunization; Z88.8 Allergy status to other drugs, medicaments and biological substances; Z68.30 Body mass index [BMI] 30.0-30.9, adult; Z90.49 Acquired absence of other specified parts of digestive tract; Z87.01 Personal history of pneumonia (recurrent); Z99.3 Dependence on wheelchair; Z88.5 Allergy status to narcotic agent; Z79.899 Other long term (current) drug therapy
CPT/HCPCS: 36415; 71260; 80048; 80053; 83605; 83690; 83735; 83880; 84100; 84484; 85025; 85379; 87040; 87070; 87205; 90732; 93005; 94618; 94640; 94667; 94760; 96365; 96366; 96367; 96372; 96375; 96376; 99285-25; A9270-GY; G0378; J0456; J1644; J1956; J2920; J2930; J7050; J7620-GY; Q9967

== ENCOUNTER 2019-09-02 07:19 | Inpatient (IN) | payer OTHER, MEDICARE ==
[2019-09-02] MEDS ORDERED: Succinylcholine 200 MG/10 ML MDV IV ONE (07:20)
[2019-09-02] MEDS ORDERED: fentaNYL 100 MCG/2 ML SDV IV ONE (07:20)
[2019-09-02] MEDS ORDERED: Albuterol 6.7 GM Inhaler INH ONE (07:20)
[2019-09-02] MEDS ORDERED: Ondansetron 4 MG/2 ML SDV IV ONE (07:20)
[2019-09-02] MEDS ORDERED: Lidocaine 2% 20 ML MDV ONE (07:20)
[2019-09-02] MEDS ORDERED: Rocuronium 100 MG/10 ML MDV IV ONE (07:20)
[2019-09-02] MEDS ORDERED: Midazolam 1 MG/ML 2 ML SDV IV ONE (07:20)
[2019-09-02] MEDS ORDERED: Dexamethasone 4 MG/ML SDV IV ONE (07:20)
[2019-09-02] MEDS ORDERED: Propofol 200 MG/20 ML SDV IV ONE (07:20)
[2019-09-02] MEDS: Lactated Ringers 1,000 ML IV SCH ×2 (08:40→13:26)
[2019-09-02] MEDS ORDERED: Clindamycin Phosphate 600 MG in Sodium Chloride 0.9% 100 ML IV ONE (09:05)
--- NOTE | 2019-09-02 11:18 | OR ---
DATE: 09/02/2019 PREOPERATIVE DIAGNOSIS: Ventral incisional hernia. POSTOPERATIVE DIAGNOSIS: Ventral incisional hernia. PROCEDURE: Open repair of ventral incisional hernia. ANESTHESIA: General. ESTIMATED BLOOD LOSS: Minimal. SPECIMEN: Hernia sac. INDICATION FOR PROCEDURE: This 64-year-old female has a large ventral incisional hernia. This hernia arose from a midline incision after a perforated appendectomy surgery. By CT scan, she has a moderate amount of small bowel within the hernia sac. PROCEDURE IN DETAIL: After adequate preparation, a ventral longitudinal incision was made. I excised the prior scar. This also included the umbilical skin. This was taken down to the hernia sac which was dissected free from the surrounding subcutaneous structures. The sac was then opened and the small bowel reduced back down into the abdomen. The margins of the hernia were identified and the omentum that was adherent to the superior portion was dissected free to grab adequate 1 to 1.5 cm margins for suture. The wound was closed with interrupted #1 Prolene sutures and this was buttressed using double- stranded 0 PDS suture. 2-0 Vicryl was used to close the subcutaneous tissue and there was a 10 mm Fermin-Valencia drain placed in the subcu area. [place] were used for the skin. [facility] /[id number]
[2019-09-02] MEDS: Morphine 2 MG/ML Syringe IVPUSH PRN ×5 (13:23→20:20)
[2019-09-02] MEDS: Acetaminophen/oxyCODONE 325-5 MG Tab PO PRN (15:50)
[2019-09-02] MEDS: Sodium Chloride 0.9% 10 ML Syringe FLUSH PRN ×2 (18:37→20:26)
[2019-09-02] MEDS ORDERED: Acetaminophen 325 MG Tab PO ONE (20:19)
[2019-09-03] MEDS: Acetaminophen/oxyCODONE 325-5 MG Tab PO PRN ×3 (00:38→16:03)
[2019-09-03] MEDS: Morphine 2 MG/ML Syringe IVPUSH PRN ×3 (04:57→13:51)
[2019-09-03] MEDS: Sodium Chloride 0.9% 10 ML Syringe FLUSH PRN ×3 (10:16→13:52)
[2019-09-03] MEDS ORDERED: Ondansetron 4 MG Tab.DIS PO PRN (11:08)
[2019-09-03] MEDS ORDERED: Polyethylene Glycol 3350 Powder 17 GM Packet PO PRN (11:15)
[2019-09-03] MEDS: Ondansetron 4 MG/2 ML SDV IV PRN ×2 (12:09→19:09)
[2019-09-03] MEDS: oxyCODONE 5 MG Tab PO PRN (16:45)
[2019-09-03] MEDS: Lisinopril 10 MG Tab PO SCH (16:46)
[2019-09-03] MEDS: Ibuprofen 600 MG Tab PO PRN (16:47)
[2019-09-03] MEDS: Calcium Carbonate 500 MG Tab.Chew PO PRN ×2 (16:48→20:28)
[2019-09-03] MEDS ORDERED: Pantoprazole 40 MG Tab.CR PO ONE (18:05)
[2019-09-03] MEDS ORDERED: diphenhydrAMINE 50 MG Cap PO ONE (19:17)
[2019-09-04] MEDS: oxyCODONE 5 MG Tab PO PRN (04:57)
[2019-09-04] MEDS: Pantoprazole 40 MG Tab.CR PO SCH (04:59)
[2019-09-04] MEDS: HYDROmorphone 1 MG/ML Syringe IVPUSH PRN ×2 (06:09→10:01)
[2019-09-04] MEDS: Lisinopril 10 MG Tab PO SCH (08:44)
--- NOTE | 2019-09-04 09:31 | PCM.PRNOTE ---
- Free Text/Narrative Note: Stable POD#2. I had seen this patient yesterday but forgot to add this note. Yesterday her concerns were itching and nausea. She did tolerate liquids OK and had flatus and small BM. Today the nausea is better as well as the itching. PO liquids and some regular food tolerated. Wound clean and dry with dipesh. GABI drain with minimal clear fluid. Plan for today is to increase ambulation. She may shower. Advance diet as tolerated. Probably will not be ready to go home tomorrow but should by 12-13.
[2019-09-04] MEDS: Sodium Chloride 0.9% 10 ML Syringe FLUSH PRN ×2 (10:02→21:01)
[2019-09-04] MEDS ORDERED: Sodium Chloride 0.9% 1,000 ML IV ONE (12:06)
[2019-09-04] MEDS: diphenhydrAMINE 50 MG Cap PO PRN ×2 (14:31→21:01)
[2019-09-04 16:18] LABS: ANION GAP 11.4
[2019-09-04] MEDS: Ibuprofen 600 MG Tab PO PRN (23:07)
[2019-09-05] MEDS: Pantoprazole 40 MG Tab.CR PO SCH (05:35)
[2019-09-05] MEDS: Ibuprofen 600 MG Tab PO PRN ×3 (05:54→19:12)
[2019-09-05] MEDS: Lisinopril 10 MG Tab PO SCH (09:07)
--- NOTE | 2019-09-05 09:14 | PCM.SN ---
- Free Text/Narrative Note: Somewhat better today. Nausea and itching improved. Some PO liquid but still has full feeling. Will give 1 more NS IV bolus now. Wound clean. Pain better and mostly controlled with PO Motrin. Clear drainage from GABI drain. Needs to ambulate better today. Will plan on discharge tomorrow.
[2019-09-05] MEDS ORDERED: Sodium Chloride 0.9% 1,000 ML IV ONE (09:47)
[2019-09-05] MEDS: Sodium Chloride 0.9% 10 ML Syringe FLUSH PRN ×2 (10:20→21:40)
[2019-09-05] MEDS: diphenhydrAMINE 50 MG Cap PO PRN (20:48)
[2019-09-06] MEDS: Ibuprofen 600 MG Tab PO PRN ×2 (02:33→08:30)
[2019-09-06] MEDS: Pantoprazole 40 MG Tab.CR PO SCH (06:06)
[2019-09-06] MEDS: Lisinopril 10 MG Tab PO SCH (08:29)
--- NOTE | 2019-09-06 10:31 | PCM.SN ---
- Free Text/Narrative Note: Better today. Pain managed. Wound clean and dry. Good PO intake. Can discharge today. RTC in SDS on 10-07-19 for FU. Off work until then. Make appointment for staple removal on 09-20-19. Restrictions limited to no lifting over 25 pounds. Resume all home meds and diet. OTC Motrin and Benadryl will be used for pain control.
== END 2019-09-06 15:00 | disposition home or self-care (01) | DRG 354 ==
LOC: DL.SDS 07:19 → EDSTATUS 09:00 → DL.MS 12:39 → DL.SDS 09-03 11:09
PROVIDERS: ADMIT Surgery; ATTEND Surgery
PROC: 0WQF0ZZ Repair Abdominal Wall, Open Approach (ICD-10-PCS; principal; 2019-09-02)
DX: K43.2 Incisional hernia without obstruction or gangrene (principal); Z68.41 Body mass index [BMI] 40.0-44.9, adult; E66.9 Obesity, unspecified; J44.9 Chronic obstructive pulmonary disease, unspecified; Z88.1 Allergy status to other antibiotic agents; Z88.5 Allergy status to narcotic agent; Z91.048 Other nonmedicinal substance allergy status; Z88.2 Allergy status to sulfonamides; Z88.8 Allergy status to other drugs, medicaments and biological substances; Z88.6 Allergy status to analgesic agent; Z98.51 Tubal ligation status; Z98.890 Other specified postprocedural states; Z79.82 Long term (current) use of aspirin; Z79.899 Other long term (current) drug therapy
CPT/HCPCS: 36415; 80048; 85025; A9270-GY; J0330; J1100; J1170; J2001; J2250; J2270; J2405; J2704; J3010; J3490; J7030; J7050; J7120; Q0163

== ENCOUNTER 2021-02-02 15:04 | Inpatient (IN) | payer OTHER, MEDICARE ==
[2021-02-02] MEDS ORDERED: Albuterol/Ipratropium 3.0-0.5 MG/3 ML Neb Soln NEB ONE (16:13)
[2021-02-02] MEDS ORDERED: methylPREDNISolone Sodium Succinate 125 MG/2 ML SDV IVPUSH ONE (16:13)
[2021-02-02] MEDS: Sodium Chloride 0.9% 10 ML Syringe FLUSH PRN ×2 (16:19→23:39)
--- NOTE | 2021-02-02 16:31 | CR ---
EXAMINATION: Chest 2V SEX: Female AGE: 65 years CLINICAL HISTORY: 65-year-old female with fever, cough and dyspnea (recently "pneumonia"). Comparison CXR 28 September 2012. Interpretation: Generally poor inspiratory effort obese female. Kyphoscoliosis. Small hiatus hernia lower middle mediastinum. Normal cardiac silhouette without cephalization of vascular flow, alveolar edema or dependent pleural effusion. No lung mass, hilar lymphadenopathy or focal lobar consolidation (infiltrate/atelectasis). No peripheral "groundglass" interstitial lung densities. No pneumothorax or pneumomediastinum. CONCLUSION: No acute cardiopulmonary abnormality. No new heart failure, lung mass or lobar pneumonia.
[2021-02-02 16:34] LABS: ANION GAP 15.6 mEq/L (7-13); CHLORIDE,CL 100 mmol/L (98-107); SODIUM,NA 138 mmol/L (136-145)
[2021-02-02 16:46] LABS: CORONAVIRUS COVID-19 NAA NEGATIVE (NEGATIVE)
--- NOTE | 2021-02-02 17:22 | EDM.PDOC ---
Scribed by Betina Amado 02/02/21 2269 for Kristofer Torres MD ED HPI GENERAL MEDICAL PROBLEM - General Chief Complaint: Respiratory Problem Stated Complaint: COPD / RECENT PNEUMONIA / TROUBLE BREATHING Time Seen by Provider: 02/02/21 15:26 Source of Information: Reports: Patient, RN, RN Notes Reviewed History Limitations: Reports: No Limitations - History of Present Illness INITIAL COMMENTS - FREE TEXT/NARRATIVE: Patient presents to ED by POV stating she was diagnosed with pneumonia a week. She has not improved. She has pain in the right side, mid to lower back area and flank. This has been present since the pneumonia was diagnosed. She has been using a nebulizer, taking the antibiotics as prescribed and is not improving. Today she found her breathing to be labored, so she came to the ER. Pt denies Hx of CHF, but has peripheral edema. She recently received a Lasix injection in clinic which resulted in a 10 pound wt loss, but did not improve her breathing. Onset: Gradual Duration: Getting Worse Location: Reports: Chest, Abdomen (and flank) Quality: Reports: Ache Severity: Severe Improves with: Reports: None Worsens with: Reports: None Associated Symptoms: Reports: No Other Symptoms - Related Data Allergies Allergy/AdvReac Type Severity Reaction Status Date / Time acetaminophen Allergy Cannot Verified 11/10/20 13:00 [From Darvocet-N] Remember amoxicillin [Amoxicillin] Allergy Rash Verified 02/02/21 16:00 codeine Allergy Cannot Verified 02/02/21 16:00 Remember levofloxacin Allergy Rash Verified 02/02/21 16:00 nitrofurantoin Allergy Cannot Verified 02/02/21 16:00 [From Macrobid] Remember nitrofurantoin Allergy Cannot Verified 02/02/21 16:00 macrocrystalline Remember [From Macrobid] propoxyphene napsylate Allergy Cannot Verified 02/02/21 16:00 [From Darvocet-N] Remember sulfamethoxazole Allergy Rash Verified 02/02/21 16:00 [From Bactrim] tramadol Allergy Cannot Verified 02/02/21 16:00 Remember trimethoprim [From Bactrim] Allergy Rash Verified 02/02/21 16:00 neomycin-polymyxin B Allergy Rash Uncoded 11/10/20 13:00 Home Meds: Home Meds Albuterol [Proair HFA] 2 puff INH Q4HR PRN 03/19/14 [History] Ascorbate Calcium/Bioflavonoid [Mariya-C 500 MG] 1 tab PO DAILY 03/19/14 [History] Lisinopril 10 mg PO DAILY 03/19/14 [History] Multivitamin [Multivitamins] 1 tab PO DAILY 03/19/14 [History] Pantoprazole [ProTONIX] 40 mg PO DAILY 03/19/14 [History] Tolterodine Tartrate [Detrol LA] 4 mg PO DAILY 03/19/14 [History] Triamcinolone Acetonide [Kenalog 0.1% Oint] 80 gm TOP ASDIRECTED PRN 03/19/14 [History] Aspirin [Ecotrin EC] 81 mg PO DAILY 06/03/19 [History] Boric Acid 1 applic TOP ASDIRECTED PRN 06/03/19 [History] Chlorthalidone 12.5 mg PO DAILY 06/03/19 [History] Glucosam/Chond/Collagen/Hyalur [Glucosamine Chondroitin] 2 cap PO DAILY 06/03/19 [History] L.acidoph,Paracasei, B.lactis [Probiotic] 1 cap PO DAILY 06/03/19 [History] Fluticasone Propionate [Flovent HFA] 2 puff INH BID 11/10/20 [History] Azithromycin 250 mg PO ASDIRECTED 02/02/21 [History] methylPREDNISolone [Medrol Dose Pack] 4 mg PO ASDIRECTED 02/02/21 [History] Past Medical History HEENT History: Reports: Hard of Hearing, Impaired Vision Cardiovascular History: Reports: High Cholesterol, Hypertension Respiratory History: Reports: COPD, SOB, Other (See Below) Other Respiratory History: lung mass Gastrointestinal History: Reports: GERD, Other (See Below) Other Gastrointestinal History: fatty liver Genitourinary History: Reports: Other (See Below) Other Genitourinary History: Overactive bladder STACKER STRAIGHTENER History: Reports: , Other (See Below) Other STACKER STRAIGHTENER History: tubal ligation Musculoskeletal History: Reports: Other (See Below) Neurological History: Reports: None Psychiatric History: Reports: None Endocrine/Metabolic History: Reports: Obesity/BMI 30+ Hematologic History: Reports: None Immunologic History: Reports: None Oncologic (Cancer) History: Reports: Other (See Below) Other Oncologic History: mass on lung Dermatologic History: Reports: Other (See Below) Other Dermatologic History: fungal infection right ear - Infectious Disease History Infectious Disease History: Reports: Chicken Pox, Measles - Past Surgical History Head Surgeries/Procedures: Reports: None HEENT Surgical History: Reports: Adenoidectomy, Tonsillectomy, Other (See Below) Other HEENT Surgeries/Procedures: NUMEROUSE EAR SURGERIES Cardiovascular Surgical History: Reports: None Respiratory Surgical History: Reports: None GI Surgical History: Reports: Appendectomy, Colonoscopy Female Surgical History: Reports: Tubal Ligation Endocrine Surgical History: Reports: None Neurological Surgical History: Reports: None Musculoskeletal Surgical History: Reports: Other (See Below) Other Musculoskeletal Surgeries/Procedures:: FOOT SURGERY Oncologic Surgical History: Reports: None Dermatological Surgical History: Reports: None Social & Family History - Family History Family Medical History: No Pertinent Family History - Caffeine Use Caffeine Use: Reports: Coffee, Soda Other Caffeine Use: COFFEE, SODA POP - Living Situation & Occupation Living situation: Reports: with Family Occupation: Retired ED ROS GENERAL - Review of Systems Review Of Systems: Comprehensive ROS is negative, except as noted in HPI. ED EXAM, GENERAL - Physical Exam Exam: See Below Exam Limited By: No Limitations General Appearance: Alert, No Apparent Distress, Obese, Other (Chronically ill appearing) Eye Exam: Bilateral Eye: EOMI, Normal Inspection, PERRL Ears: Normal External Exam, Hearing Grossly Normal Nose: Normal Inspection, Normal Mucosa, No Blood Throat/Mouth: Normal Inspection, Normal Lips, Normal Teeth, Normal Gums, Normal Oropharynx, Normal Voice, No Airway Compromise Head: Atraumatic, Normocephalic Neck: Normal Inspection, Supple, Non-Tender, Full Range of Motion Respiratory/Chest: Chest Non-Tender, Decreased Breath Sounds, Crackles, Wheezing, Other (Increased work of breathing). No: Rales, Rhonchi Cardiovascular: Normal Peripheral Pulses, Regular Rate, Rhythm, No JVD, No Murmur, Other (Trace edema) GI/Abdominal: Normal Bowel Sounds, Soft, Non-Tender, No Organomegaly, No Distention, No Abnormal Bruit, No Mass (Female) Exam: Deferred Rectal (Female) Exam: Deferred Back Exam: Normal Inspection, Full Range of Motion. No: Vertebral Tenderness Extremities: Normal Inspection, Normal Range of Motion, Non-Tender, Normal Capillary Refill, Pedal Edema. No: Joint Swelling, Ginette's Sign, Leg Pain, Increased Warmth, Mottled, Pallor, Redness Neurological: Alert, Oriented, CN II-XII Intact, Normal Cognition, Normal Gait, No Motor/Sensory Deficits Psychiatric: Normal Affect, Normal Mood Skin Exam: Warm, Dry, Intact, Normal Color, No Rash #1 Interpretation EKG Date: 02/02/21 Time: 15:49 Rhythm: Other (sinus rhythm) Rate (Beats/Min): 78 [place]: Normal P-Wave: Present QRS: Other (low voltage, precordial leads) ST-T: Other (nonspecific ST-T segment changes in V1 and V2.) QT: Normal Course - Vital Signs Last Recorded V/S: Last Vital Signs Temp 99.2 F 02/02/21 15:51 Pulse 86 02/02/21 15:51 Resp 22 H 02/02/21 15:51 BP 160/87 H 02/02/21 15:51 Pulse Ox 94 L 02/02/21 15:51 - Orders/Labs/Meds Orders: Active Orders 24 hr Category Date Time Status EKG 12 Lead [EKG Documentation Completion] [RC] STAT Care 02/02/21 15:43 Active Peripheral IV Care [RC] . DIRECTED Care 02/02/21 15:43 Active RT Aerosol Therapy [RC] ASDIRECTED Care 02/02/21 16:13 Active CULTURE BLOOD [BC] Stat Lab 02/02/21 15:56 Received CULTURE BLOOD [BC] Stat Lab 02/02/21 16:30 Received UA RFX FRANK AND CULT IF INDIC [URIN] Stat Lab 02/02/21 16:43 Received Sodium Chloride 0.9% [Saline Flush] Med 02/02/21 15:43 Active 10 ml FLUSH ASDIRECTED PRN Blood Culture x2 Reflex Set [OM.PC] Stat Oth 02/02/21 15:42 Ordered Peripheral IV Insertion Adult [OM.PC] Stat Oth 02/02/21 15:43 Ordered Medication Orders Sodium Chloride (Sodium Chloride 0.9% 10 Ml Syringe) 10 ml FLUSH ASDIRECTED PRN PRN Reason: Keep Vein Open Last Admin: 02/02/21 16:19 Dose: 10 ml Documented by: SHANDA Labs: Laboratory Tests 02/02/21 02/02/21 02/02/21 Range/Units 15:50 15:56 15:56 WBC 16.6 H (5.0-10.0) 10^3/uL RBC 4.48 (4.2-5.4) 10^6/uL Hgb 12.9 (12.0-16.0) g/dL Hct 41.3 (37.0-47.0) % MCV 92.2 D (80-100) fL MCH 28.8 (27.0-34.0) pg MCHC 31.2 L (33.0-35.0) g/dL Plt Count 351 D (150-450) 10^3/uL Neut % (Auto) 71.9 (42.2-75.2) % Lymph % (Auto) 18.1 L (20.5-50.1) % [place] % (Auto) 9.3 H (2-8) % Eos % (Auto) 0.5 L (1.0-3.0) % Baso % (Auto) 0.2 (0.0-1.0) % D-Dimer, Quantitative (0-400) ng/mL Sodium 138 (136-145) mmol/L Potassium 4.6 (3.5-5.1) mmol/L Chloride 100 (98-107) mmol/L Carbon Dioxide 27 (21-32) mmol/L Anion Gap 15.6 H (7-13) mEq/L BUN 25 H (7-18) mg/dL Creatinine 0.89 (0.55-1.02) mg/dL Est Cr Clr Drug Dosing 51.43 mL/min Estimated GFR (MDRD) > 60 BUN/Creatinine Ratio 28.1 (No establ ref range) Glucose 116 H (70-99) mg/dL Lactic Acid (0.4-2.0) mmol/L Calcium 8.7 (8.5-10.1) mg/dL Total Bilirubin 0.4 (0.2-1.0) mg/dL AST 15 (15-37) U/L ALT 30 (14-59) U/L Alkaline Phosphatase 58 (46-116) U/L Troponin I < 0.017 (0.000-0.056) ng/mL C-Reactive Protein < 0.2 (0.0-0.9) mg/dL B-Natriuretic Peptide 74 (0-100) pg/ml Total Protein 7.2 (6.4-8.2) g/dL Albumin 3.9 (3.4-5.0) g/dL Globulin 3.3 Albumin/Globulin Ratio 1.2 Urine Color (YELLOW) Urine Appearance (CLEAR) Urine pH (5.0-9.0) Ur Specific [place] (1.005-1.030) Urine Protein (NEGATIVE) Urine Glucose (UA) (NEGATIVE) Urine Ketones (NEGATIVE) Urine Occult Blood (NEGATIVE) Urine Nitrite (NEGATIVE) Urine Bilirubin (NEGATIVE) Urine Urobilinogen (0.2-1.0) mg/dL Ur Leukocyte Esterase (NEGATIVE) Influenza Type A RNA Negative (NEGATIVE) Influenza Type B RNA Negative (NEGATIVE) SARS-CoV-2 RNA (SHANIA) Negative (NEGATIVE) 02/02/21 02/02/21 02/02/21 Range/Units 15:56 15:56 16:43 WBC (5.0-10.0) 10^3/uL RBC (4.2-5.4) 10^6/uL Hgb (12.0-16.0) g/dL Hct (37.0-47.0) % MCV (80-100) fL MCH (27.0-34.0) pg MCHC (33.0-35.0) g/dL Plt Count (150-450) 10^3/uL Neut % (Auto) (42.2-75.2) % Lymph % (Auto) (20.5-50.1) % [place] % (Auto) (2-8) % Eos % (Auto) (1.0-3.0) % Baso % (Auto) (0.0-1.0) % D-Dimer, Quantitative 630 H (0-400) ng/mL Sodium (136-145) mmol/L Potassium (3.5-5.1) mmol/L Chloride (98-107) mmol/L Carbon Dioxide (21-32) mmol/L Anion Gap (7-13) mEq/L BUN (7-18) mg/dL Creatinine (0.55-1.02) mg/dL Est Cr Clr Drug Dosing mL/min Estimated GFR (MDRD) BUN/Creatinine Ratio (No establ ref range) Glucose (70-99) mg/dL Lactic Acid 1.5 (0.4-2.0) mmol/L Calcium (8.5-10.1) mg/dL Total Bilirubin (0.2-1.0) mg/dL AST (15-37) U/L ALT (14-59) U/L Alkaline Phosphatase (46-116) U/L Troponin I (0.000-0.056) ng/mL C-Reactive Protein (0.0-0.9) mg/dL B-Natriuretic Peptide (0-100) pg/ml Total Protein (6.4-8.2) g/dL Albumin (3.4-5.0) g/dL Globulin Albumin/Globulin Ratio Urine Color Yellow (YELLOW) Urine Appearance Clear (CLEAR) Urine pH 6.5 (5.0-9.0) Ur Specific [place] 1.015 (1.005-1.030) Urine Protein Negative (NEGATIVE) Urine Glucose (UA) Negative (NEGATIVE) Urine Ketones Negative (NEGATIVE) Urine Occult Blood Small H (NEGATIVE) Urine Nitrite Negative (NEGATIVE) Urine Bilirubin Negative (NEGATIVE) Urine Urobilinogen 0.2 (0.2-1.0) mg/dL Ur Leukocyte Esterase Negative (NEGATIVE) Influenza Type A RNA (NEGATIVE) Influenza Type B RNA (NEGATIVE) SARS-CoV-2 RNA (SHAINA) (NEGATIVE) Meds: Medications Generic Name Dose Route Start Last Admin Trade Name Freq PRN Reason Stop Dose Admin Sodium Chloride 10 ml 02/02/21 15:43 02/02/21 16:19 Sodium Chloride 0.9% 10 Ml Syringe FLUSH 10 ml ASDIRECTED PRN Administration Keep Vein Open Discontinued Medications Generic Name Dose Route Start Last Admin Trade Name Freq PRN Reason Stop Dose Admin Albuterol/Ipratropium 3 ml 02/02/21 16:13 02/02/21 16:20 Albuterol/Ipratropium 3.0-0.5 Mg/3 Ml Neb Soln NEB 02/02/21 16:14 3 ml ONETIME ONE Administration Methylprednisolone Sodium Succinate 125 mg 02/02/21 16:13 02/02/21 16:18 Methylprednisolone Sodium Succinate 125 Mg/2 Ml Sdv IVPUSH 02/02/21 16:14 125 mg ONETIME ONE Administration - Radiology Interpretation Free Text/Narrative:: Chest x-ray: No acute cardiopulmonary abnormality. No new heart failure, lung mass or lobar pneumonia. See rad report. - Re-Assessments/Exams Free Text/Narrative Re-Assessment/Exam: 02/02/21 17:19 Walking O2 saturation decreased from 92%-94% at rest on room air to 86% ambulatory (walking across ER room). Departure - Departure Time of Disposition: 17:21 (admitted to Dr. Balderas) Disposition: Admitted As Inpatient 65 Condition: Fair Clinical Impression: Acute exacerbation of chronic obstructive pulmonary disease (COPD) Leukocytosis, unspecified Qualifiers: Leukocytosis type: unspecified Qualified Code(s): D72.829 - Elevated white blood cell count, unspecified - Discharge Information *PRESCRIPTION DRUG MONITORING PROGRAM REVIEWED*: Not Applicable *COPY OF PRESCRIPTION DRUG MONITORING REPORT IN PATIENT FELICE: Not Applicable Forms: ED Department Discharge Sepsis Event Note (ED) - Focused Exam Vital Signs: Vital Signs Temp Pulse Resp BP Pulse Ox 02/02/21 15:51 99.2 F 86 22 H 160/87 H 94 L - My Orders Last 24 Hours: My Active Orders 02/02/21 15:42 Blood Culture x2 Reflex Set [OM.PC] Stat 02/02/21 15:43 EKG 12 Lead [EKG Documentation Completion] [RC] STAT Peripheral IV Care [RC] . DIRECTED Sodium Chloride 0.9% [Saline Flush] 10 ml FLUSH ASDIRECTED PRN Peripheral IV Insertion Adult [OM.PC] Stat 02/02/21 15:56 CULTURE BLOOD [BC] Stat 02/02/21 16:13 RT Aerosol Therapy [RC] ASDIRECTED 02/02/21 16:30 CULTURE BLOOD [BC] Stat 02/02/21 16:43 UA RFX FRANK AND CULT IF INDIC [URIN] Stat - Assessment/Plan Last 24 Hours: My Active Orders 02/02/21 15:42 Blood Culture x2 Reflex Set [OM.PC] Stat 02/02/21 15:43 EKG 12 Lead [EKG Documentation Completion] [RC] STAT Peripheral IV Care [RC] . DIRECTED Sodium Chloride 0.9% [Saline Flush] 10 ml FLUSH ASDIRECTED PRN Peripheral IV Insertion Adult [OM.PC] Stat 02/02/21 15:56 CULTURE BLOOD [BC] Stat 02/02/21 16:13 RT Aerosol Therapy [RC] ASDIRECTED 02/02/21 16:30 CULTURE BLOOD [BC] Stat 02/02/21 16:43 UA RFX FRANK AND CULT IF INDIC [URIN] Stat I have read and agree with the documentation that has been completed regarding this visit. By signing this record, I attest that the documentation was completed in my physical presence and is an accurate record of the encounter.
[2021-02-02] MEDS ORDERED: Sodium Chloride 0.9% 10 ML Syringe FLUSH PRN (17:53)
[2021-02-02] MEDS ORDERED: Ondansetron 4 MG/2 ML SDV IVPUSH PRN (17:53)
[2021-02-02] MEDS ORDERED: hydrALAZINE 20 MG/ML SDV IVPUSH PRN (17:56)
--- NOTE | 2021-02-02 18:00 | PCM.SN.2 ---
- Free Text/Narrative Note: START OF DOCTOR KELLYMIStepan HISTORY AND PHYSICAL / CONSULTATION NOTE Chief Complaint: Shortness of breath History of Present Illness: The patient is a six 5-year-old female who [facility] to [facility] of dyspnea. She states that the dyspnea has been ongoing for approximately 1 week and has recently worsened. She states that she presented to a clinic on an outpatient basis and receive treatment however despite this her condition has not improved. She admits to onset of rigors as well as cough which appears to be chronic. She appears to have wheeze as well which she admits is chronic. She denies fever, nausea, vomiting, abdominal pain, diarrhea, myalgia, chest pain, peripheral edema. She denies anosmia and she denies dysgeusia. Patient has known history of COPD. She presents for further evaluation Surgical History: Appendectomy, tonsillectomy, adenoidectomy, ventral herniorrhaphy x2, right mastoidectomy, left tympanoplasty, tubal ligation, right foot surgery Family History: Cancer, stroke, diabetes, coronary artery disease, hypertension, hyperlipidemia Social History: Tobacco: Former smoker Alcohol: Denies Caffeine: Coffee, cola Drugs: Never Allergies: Propoxyphene, Darvocet, amoxicillin, codeine, Levaquin, nitrofurantoin, Ultram, Bactrim, neomycin/polymyxin Code Status: Full Pertinent Laboratory Results / Pertinent Radiology Results / Pertinent Diagnostic Results / Pertinent Vital Signs: Blood pressure 130/89, pulse 86, respirations 22, temperature 9 9.2 degrees, 94% room air, white blood cell count 16.6 Physical Examination: General: -Alert -No acute distress -No dyspnea -No tachypnea -Morbidly obese Head: -Atraumatic -Normocephalic Eyes: -Pupils equally round and reactive to light and accommodation -Extraocular muscles intact Neurological: -Cranial nerves II-XII intact Neck: -No jugular venous distention -No thyromegaly -No cervical lymphadenopathy Heart: -Regular rate -Regular rhythm -No murmurs -No gallops -No rubs Lungs: -Scant bilateral wheeze -No rhonchi -No rales Abdomen: -Normal bowel sounds in all four quadrants -No rebound -No guarding -No tenderness Extremities: -2/4 pulse in all four extremities -No clubbing -No cyanosis -Nonpitting bipedal edema -No calf tenderness present bilaterally -Negative Homans sign bilaterally Musculoskeletal: -5/5 bilateral upper extremity strength -5/5 bilateral lower extremity strength -Sensorium of bilateral upper extremities are equal and intact -Sensorium of bilateral lower extremities are equal and intact Additional Details / Additional Findings / Exceptions / Miscellaneous: Assessment / Plan: COPD exacerbation. Solu-Medrol 60 mg IV every 8 hours plus DuoNeb every 4 hours plus doxycycline 100 mg p.o. twice daily Osteoporosis Hepatic steatosis Overactive bladder. Detrol LA 4 mg p.o. daily History of gastric wall thickening. Outpatient follow-up with gastroenterology if she is never been evaluated for this finding from her past medical record Documented history of lung mass. I see no imaging studies in this hospital to corroborate this. Outpatient follow-up with her primary care physician or provider Degenerative disc disease Coronary artery disease. Aspirin 81 mg p.o. daily GERD. Protonix 40 mg p.o. daily Hyperlipidemia Hypertension. Chlorthalidone 12.5 mg p.o. daily plus lisinopril 20 mg p.o. daily Obesity. Patient becomes regarding lifestyle modification DVT prophylaxis. Lovenox 40 mg subcutaneously daily Disposition: Anticipate discharge within 24 hours END OF DOCTOR EMAMIS HISTORY AND PHYSICAL / CONSULTATION NOTE
[2021-02-02] MEDS: Doxycycline Monohydrate 100 MG Cap PO SCH (18:33)
[2021-02-02] MEDS: Albuterol/Ipratropium 3.0-0.5 MG/3 ML Neb Soln NEB SCH ×2 (18:33→23:45)
[2021-02-03] MEDS: Acetaminophen 325 MG Tab PO PRN ×3 (00:06→23:01)
[2021-02-03] MEDS: Albuterol/Ipratropium 3.0-0.5 MG/3 ML Neb Soln NEB SCH ×6 (03:41→23:02)
[2021-02-03] MEDS: Pantoprazole 40 MG Tab.CR PO SCH (05:53)
--- NOTE | 2021-02-03 07:16 | PCM.SN.2 ---
- Free Text/Narrative Note: START OF DOCTOR EMAMIS PROGRESS NOTE Subjective: The patient complains of dyspnea. She currently rates her respiratory status is a 4 out of 10 of 10 is her baseline. She complains of back pain as well. Overnight she denies fever, rigors, nausea, vomiting, wheeze, abdominal pain, chest pain. She states that she has occasional cough which is nonproductive. I explained to the patient her current medical condition and plan of care and have answered all of her questions Objective: General: -Alert -No acute distress -No dyspnea -No tachypnea -Obese Heart: -Regular rate -Regular rhythm -No murmurs -No gallops -No rubs Lungs: -No wheeze -No rhonchi -No rales -Distant breath sounds bilaterally Abdomen: -Normal bowel sounds in all four quadrants -No rebound -No guarding -No tenderness Extremities: -2/4 pulse in all four extremities -No clubbing -No cyanosis -No edema Additional Details / Additional Findings / Exceptions / Miscellaneous: Pertinent Laboratory Results / Pertinent Radiology Results / Pertinent Diagnostic Results / Pertinent Vital Signs: Temperature 96.3 degrees, white blood count 1.2 Assessment / Plan: COPD exacerbation. Solu-Medrol 80 mg IV every 8 hours plus DuoNeb every 4 hours plus doxycycline 100 mg p.o. twice daily Osteoporosis Hepatic steatosis Overactive bladder. Detrol LA 4 mg p.o. daily History of gastric wall thickening. Outpatient follow-up with gastroenterology if she is never been evaluated for this finding from her past medical record Documented history of lung mass. I see no imaging studies in this hospital to corroborate this. Outpatient follow-up with her primary care physician or provider Degenerative disc disease Coronary artery disease. Aspirin 81 mg p.o. daily GERD. Protonix 40 mg p.o. daily Hyperlipidemia Hypertension. Chlorthalidone 12.5 mg p.o. daily plus lisinopril 20 mg p.o. daily Obesity. Patient becomes regarding lifestyle modification Microscopic hematuria. Outpatient follow-up with urology especially given her history of smoking DVT prophylaxis. Lovenox 40 mg subcutaneously daily Disposition: Tentative discharge within 24 hours END OF DOCTOR EMAMIS PROGRESS NOTE
[2021-02-03] MEDS ORDERED: methylPREDNISolone Sodium Succinate 40 MG/1 ML SDV IVPUSH SCH ×2 (07:30)
[2021-02-03] MEDS: Enoxaparin 40 MG/0.4 ML Syringe SUBCUT SCH (08:46)
[2021-02-03] MEDS: Aspirin 81 MG Tab.EC PO SCH (08:50)
[2021-02-03] MEDS: Doxycycline Monohydrate 100 MG Cap PO SCH ×2 (08:50→20:35)
[2021-02-03] MEDS: Sodium Chloride 0.9% 10 ML Syringe FLUSH PRN ×2 (08:55→14:35)
[2021-02-03] MEDS ORDERED: Pantoprazole 40 MG Tab.CR PO SCH (09:00)
[2021-02-03] MEDS ORDERED: Non-Formulary Medication 1 Each (Tolterodine Tartrate [Detrol La] 4 MG Cap.Er.24h) PO SCH (09:00)
[2021-02-03] MEDS ORDERED: Lisinopril 20 MG Tab PO SCH (09:00)
[2021-02-03] MEDS ORDERED: Chlorthalidone 25 MG Tab PO SCH (09:00)
[2021-02-03 09:42] LABS: BASE EXCESS ARTERIAL 0 mmol/L ((-2)-(+3)); BICARBONATE,ARTERIAL 24.6 mmol/L (22-26); O2 DELIVERY DEVICE NASAL CANNULA; O2 SATURATION ARTERIAL 94 % (95-100); PCO2 ARTERIAL 42 mmHg (35-45); PO2 ARTERIAL 67 mmHg (70-100)
[2021-02-03 09:44] LABS: ALLEN TEST PERFORMED
[2021-02-03] MEDS: methylPREDNISolone Sodium Succinate 40 MG/1 ML SDV IVPUSH SCH ×2 (14:34→23:00)
[2021-02-04] MEDS: Albuterol/Ipratropium 3.0-0.5 MG/3 ML Neb Soln NEB SCH ×3 (03:15→11:51)
[2021-02-04] MEDS: Acetaminophen 325 MG Tab PO PRN (03:19)
[2021-02-04] MEDS: Pantoprazole 40 MG Tab.CR PO SCH (05:42)
[2021-02-04] MEDS: methylPREDNISolone Sodium Succinate 40 MG/1 ML SDV IVPUSH SCH ×2 (05:42→14:27)
--- NOTE | 2021-02-04 07:29 | PCM.SN.2 ---
- Free Text/Narrative Note: START OF DOCTOR EMAMIS DISCHARGE SUMMARY Date of Admission: February 02, 2021 Date of Discharge: 7:26 AM on 05/07/2021 Primary Diagnosis: COPD exacerbation Secondary Diagnosis: Osteoporosis Hepatic steatosis Overactive bladder History of gastric wall thickening Documented history of lung mass for which I see no imaging studies at this hospital to corroborate this Degenerative disc disease Coronary artery disease GERD Hyperlipidemia Hypertension Obesity Consultations: None Condition on Discharge: Stable Disposition: The patient will be advised to follow-up with gastroenterology within 1 month for her history of gastric wall thickening if she has never previously been evaluated for this The patient will be advised to follow-up with her primary care physician or provider 7 to 14 days post discharge for posthospitalization evaluation and to discuss medical record documentation of her history of lung mass, again, for which I see no imaging studies at this hospital to corroborate this Discharge Medications: Aspirin 81 mg p.o. daily Kenalog 0.1% ointment to be applied to affected area as directed Multivitamin 1 tab p.o. daily Flovent HFA: 2 puffs twice daily Proventil HFA: 90 mcg/spray: 2 puffs every 4 hours as needed shortness of breath or wheeze Detrol LA 4 mg p.o. daily Protonix 40 mg p.o. daily Lisinopril 40 mg p.o. daily Doxycycline 100 mg p.o. twice daily. Quantity 8. 0 refills Chlorthalidone 25 mg p.o. daily Prednisone 10 mg p.o.: 4 tabs daily x3 days then 3 tabs daily x3 days then 2 tabs daily x3 days then 1 tab daily x3 days. Quantity sufficient. 0 refills END OF DOCTOR EMAMIS DISCHARGE SUMMARY
[2021-02-04] MEDS: Enoxaparin 40 MG/0.4 ML Syringe SUBCUT SCH (08:50)
[2021-02-04] MEDS: Aspirin 81 MG Tab.EC PO SCH (08:51)
[2021-02-04] MEDS: Doxycycline Monohydrate 100 MG Cap PO SCH (08:51)
[2021-02-04] MEDS ORDERED: Chlorthalidone 25 MG Tab PO SCH (09:00)
[2021-02-04] MEDS ORDERED: Tolterodine 2 MG Cap.ER PO SCH (09:00)
[2021-02-04] MEDS ORDERED: Lisinopril 20 MG Tab PO SCH (09:00)
== END 2021-02-04 14:33 | disposition home or self-care (01) | DRG 191 ==
LOC: DL.ED 15:04 → DL.MS 17:50
PROVIDERS: ADMIT Internal Medicine; ATTEND Internal Medicine
DX: J44.1 Chronic obstructive pulmonary disease with (acute) exacerbation (principal); Z68.42 Body mass index [BMI] 45.0-49.9, adult; M81.0 Age-related osteoporosis without current pathological fracture; K76.0 Fatty (change of) liver, not elsewhere classified; N32.81 Overactive bladder; I25.10 Atherosclerotic heart disease of native coronary artery without angina pectoris; K21.9 Gastro-esophageal reflux disease without esophagitis; E78.5 Hyperlipidemia, unspecified; I10 Essential (primary) hypertension; E66.9 Obesity, unspecified; Z20.822 Contact with and (suspected) exposure to COVID-19; H91.90 Unspecified hearing loss, unspecified ear; H54.7 Unspecified visual loss; E78.00 Pure hypercholesterolemia, unspecified; K31.9 Disease of stomach and duodenum, unspecified; Z90.49 Acquired absence of other specified parts of digestive tract; Z98.51 Tubal ligation status; Z87.891 Personal history of nicotine dependence; Z88.0 Allergy status to penicillin; Z88.5 Allergy status to narcotic agent; Z88.1 Allergy status to other antibiotic agents; Z88.8 Allergy status to other drugs, medicaments and biological substances; Z88.6 Allergy status to analgesic agent; Z79.82 Long term (current) use of aspirin; Z79.52 Long term (current) use of systemic steroids; Z79.899 Other long term (current) drug therapy; Z98.890 Other specified postprocedural states
CPT/HCPCS: 0240U; 36415; 36600; 71046; 80053; 81001; 82803; 83605; 83880; 84484; 85025; 85379; 86140; 87040; 93005; 93010; 94640; 99284; A9270-GY; J1650; J2920; J2930; J7620-GY

== ENCOUNTER 2022-05-11 06:02 | Day surgery (SDC) | payer OTHER ==
[~2022-05-11 06:02] MED LIST: Ondansetron 4 MG/2 ML SDV IVPUSH PRN; Proparacaine 0.5% Ophth Soln 15 ML Bottle EYELF ONE
[2022-05-11] MEDS ORDERED: Midazolam 1 MG/ML 2 ML SDV IV ONE (06:03)
[2022-05-11] MEDS ORDERED: Sodium Chloride 0.9% 10 ML Syringe IV ONE (06:03)
[2022-05-11] MEDS ORDERED: Dexamethasone 4 MG/ML SDV IV ONE (06:03)
[2022-05-11] MEDS ORDERED: Acetaminophen 325 MG Tab PO PRN (06:30)
[2022-05-11] MEDS: Moxifloxacin 0.5% Ophth Soln 3 ML Bottle EYELF ONE (06:51)
[2022-05-11] MEDS: Povidone-Iodine 5% Sterile Ophth Soln 30 ML Bottle EYELF ONE ×2 (06:51→08:13)
[2022-05-11] MEDS: Proparacaine 0.5% Ophth Soln 15 ML Bottle EYELF ONE ×2 (06:51→08:10)
[2022-05-11] MEDS: Tropicamide 1% Ophth Soln 15 ML Bottle EYELF ONE (06:52)
[2022-05-11] MEDS: Phenylephrine 10% Ophth Soln 5 ML Bot EYELF PRN (06:53)
[2022-05-11] MEDS: Timolol Maleate 0.5% Ophth Soln 5 ML Bottle EYELF ONE (06:53)
[2022-05-11] MEDS: Sodium Chloride 0.9% 10 ML Syringe FLUSH PRN (06:56)
[2022-05-11] MEDS: Cataract Ophth Solution EYELF ONE (06:56)
[2022-05-11] MEDS: Apraclonidine 0.5% Ophth Soln 5 ML Bot EYELF ONE (08:14)
[2022-05-11] MEDS: Dexamethasone/Tobramycin 0.1-0.3% Ophth Oint 3.5 GM Tube EYELF ONE (08:15)
[2022-05-11] MEDS: Diclofenac Sodium 0.1% Ophth Soln 5 ML Bottle EYELF ONE (08:15)
[2022-05-11] MEDS: Lidocaine 1% 5 ML VIAL ONE (08:16)
[2022-05-11] MEDS: Balanced Salt Solution Ophth Irrig 500 ML Bottle IOCULAR ONE (08:18)
[2022-05-11] MEDS: Vancomycin 500 MG SDV EYELF ONE (08:18)
[2022-05-11] MEDS: Chondroitin Sulfate/Hyaluronate Sodium Ophth Inj 0.5 ML Syringe IOCULAR ONE (08:19)
== END 2022-05-11 09:25 | disposition home or self-care (01) ==
LOC: DL.SDS 06:02
PROVIDERS: ATTEND Ophthalmology
DX: E11.36 Type 2 diabetes mellitus with diabetic cataract (principal); H25.812 Combined forms of age-related cataract, left eye; I10 Essential (primary) hypertension; J44.9 Chronic obstructive pulmonary disease, unspecified; K21.9 Gastro-esophageal reflux disease without esophagitis; E66.01 Morbid (severe) obesity due to excess calories; M19.90 Unspecified osteoarthritis, unspecified site; Z88.5 Allergy status to narcotic agent; Z88.1 Allergy status to other antibiotic agents; Z88.6 Allergy status to analgesic agent; Z88.2 Allergy status to sulfonamides; Z98.890 Other specified postprocedural states; Z90.49 Acquired absence of other specified parts of digestive tract; Z87.891 Personal history of nicotine dependence; Z79.82 Long term (current) use of aspirin; Z79.51 Long term (current) use of inhaled steroids; Z79.899 Other long term (current) drug therapy; Z68.42 Body mass index [BMI] 45.0-49.9, adult
CPT/HCPCS: 00142; A9270-GY; J1100; J2250; J3370; J3490

== ENCOUNTER 2022-05-25 06:25 | Day surgery (SDC) | payer OTHER ==
[~2022-05-25 06:25] MED LIST changes: -Ondansetron 4 MG/2 ML SDV IVPUSH PRN; -Proparacaine 0.5% Ophth Soln 15 ML Bottle EYELF ONE; +Sodium Chloride 0.9% 10 ML Syringe FLUSH PRN
[2022-05-25] MEDS ORDERED: Sodium Chloride 0.9% 10 ML Syringe IV ONE (06:26)
[2022-05-25] MEDS ORDERED: Dexamethasone 4 MG/ML SDV IV ONE (06:26)
[2022-05-25] MEDS ORDERED: Midazolam 1 MG/ML 2 ML SDV IV ONE (06:26)
[2022-05-25] MEDS ORDERED: Cataract Ophth Solution EYERT ONE (06:30)
[2022-05-25] MEDS ORDERED: Ondansetron 4 MG/2 ML SDV IVPUSH PRN (06:30)
[2022-05-25] MEDS ORDERED: Tropicamide 1% Ophth Soln 15 ML Bottle EYERT ONE (06:30)
[2022-05-25] MEDS ORDERED: Acetaminophen/Codeine 300-30 MG Tab PO PRN (06:30)
[2022-05-25] MEDS ORDERED: Povidone-Iodine 5% Sterile Ophth Soln 30 ML Bottle EYERT ONE ×2 (06:30→07:58)
[2022-05-25] MEDS ORDERED: Phenylephrine 10% Ophth Soln 5 ML Bot EYERT PRN (06:30)
[2022-05-25] MEDS ORDERED: Proparacaine 0.5% Ophth Soln 15 ML Bottle EYERT ONE (06:30)
[2022-05-25] MEDS ORDERED: Acetaminophen 325 MG Tab PO PRN (06:30)
[2022-05-25] MEDS ORDERED: Timolol Maleate 0.5% Ophth Soln 5 ML Bottle EYERT ONE (06:30)
[2022-05-25] MEDS ORDERED: Moxifloxacin 0.5% Ophth Soln 3 ML Bottle EYERT ONE (06:30)
[2022-05-25] MEDS ORDERED: Proparacaine 0.5% Ophth Soln 15 ML Bottle ONE (07:03)
[2022-05-25] MEDS ORDERED: Tetracaine HCl/PF 0.5% 4 ML Bottle EYERT ONE (07:57)
[2022-05-25] MEDS ORDERED: Apraclonidine 0.5% Ophth Soln 5 ML Bot EYERT ONE (07:59)
[2022-05-25] MEDS ORDERED: Diclofenac Sodium 0.1% Ophth Soln 5 ML Bottle EYERT ONE (08:00)
[2022-05-25] MEDS ORDERED: Dexamethasone/Neomycin/Polymyxin B Ophth Oint 3.5 GM Tube EYERT ONE (08:01)
[2022-05-25] MEDS ORDERED: Lidocaine 1% 5 ML VIAL ONE (08:01)
[2022-05-25] MEDS ORDERED: Vancomycin 500 MG SDV EYERT ONE (08:02)
[2022-05-25] MEDS ORDERED: Balanced Salt Solution Ophth Irrig 500 ML Bottle IOCULAR ONE (08:02)
[2022-05-25] MEDS ORDERED: Chondroitin Sulfate/Hyaluronate Sodium Ophth Inj 0.75 ML Syringe EYERT ONE (08:03)
== END 2022-05-25 09:07 | disposition home or self-care (01) ==
LOC: DL.SDS 06:25
PROVIDERS: ATTEND Ophthalmology
DX: E11.36 Type 2 diabetes mellitus with diabetic cataract (principal); H25.811 Combined forms of age-related cataract, right eye; I10 Essential (primary) hypertension; K21.9 Gastro-esophageal reflux disease without esophagitis; J44.9 Chronic obstructive pulmonary disease, unspecified; E66.01 Morbid (severe) obesity due to excess calories; M19.90 Unspecified osteoarthritis, unspecified site; E78.5 Hyperlipidemia, unspecified; Z98.890 Other specified postprocedural states; Z87.891 Personal history of nicotine dependence; Z79.51 Long term (current) use of inhaled steroids; Z79.899 Other long term (current) drug therapy; Z79.82 Long term (current) use of aspirin; Z88.1 Allergy status to other antibiotic agents; Z88.0 Allergy status to penicillin; Z88.5 Allergy status to narcotic agent; Z88.2 Allergy status to sulfonamides; Z88.6 Allergy status to analgesic agent; Z88.8 Allergy status to other drugs, medicaments and biological substances; Z68.42 Body mass index [BMI] 45.0-49.9, adult; Z90.49 Acquired absence of other specified parts of digestive tract
CPT/HCPCS: 00142; 66982; A9270; J1100; J2250; J3370; J3490

== ENCOUNTER 2022-07-04 02:30 | Emergency (ER) | payer OTHER ==
[2022-07-04] MEDS ORDERED: Albuterol/Ipratropium 3.0-0.5 MG/3 ML Neb Soln INH ONE (15:00)
[2022-07-04] MEDS ORDERED: methylPREDNISolone Sodium Succinate 125 MG/2 ML SDV IVPUSH ONE (15:00)
[2022-07-29 15:42] LABS: ANION GAP 11.4 mEq/L (7-13); CHLORIDE,CL 101 mmol/L (98-107); ESTIMATED GFR 69 mL/min (>=60); SODIUM,NA 139 mmol/L (136-145)
[2022-07-29 15:44] LABS: CORONAVIRUS COVID-19 NAA NEGATIVE (NEGATIVE)
[2022-07-29 15:45] LABS: RESPIRATORY SYNCYTIAL VIR NAA NEGATIVE (NEGATIVE)
== END 2022-07-04 16:30 | disposition home or self-care (01) ==
LOC: DL.ED 02:30
DX: J44.1 Chronic obstructive pulmonary disease with (acute) exacerbation (principal); E11.9 Type 2 diabetes mellitus without complications; I10 Essential (primary) hypertension; E66.9 Obesity, unspecified
CPT/HCPCS: 0241U; 36415; 71045; 80053; 83605; 83735; 83880; 84484; 85025; 96374; 99285

== ENCOUNTER 2024-09-02 07:23 | Day surgery (SDC) | payer MEDICARE, OTHER ==
[2024-09-02] MEDS ORDERED: fentaNYL 100 MCG/2 ML SDV IV ONE (07:24)
[2024-09-02] MEDS ORDERED: Midazolam 1 MG/ML 2 ML SDV IV ONE (07:24)
[2024-09-02] MEDS ORDERED: Midazolam 1 MG/ML 2 ML SDV ONE ×2 (07:37→07:58)
[2024-09-02] MEDS ORDERED: fentaNYL 100 MCG/2 ML SDV ONE (07:37)
[2024-09-02] MEDS: Dextrose 5%-0.45% NaCl 1,000 ML IV SCH (07:46)
[2024-09-02] MEDS: fentaNYL 100 MCG/2 ML SDV IV ONE (07:56)
[2024-09-02] MEDS: Midazolam 1 MG/ML 2 ML SDV IV ONE ×3 (07:56→08:00)
== END 2024-09-02 09:50 | disposition home or self-care (01) ==
LOC: DL.ENDO 07:23
PROVIDERS: ATTEND Internal Medicine Gastroenterology
DX: K31.89 Other diseases of stomach and duodenum (principal); J44.9 Chronic obstructive pulmonary disease, unspecified; I10 Essential (primary) hypertension; K21.9 Gastro-esophageal reflux disease without esophagitis; E66.9 Obesity, unspecified; Z68.42 Body mass index [BMI] 45.0-49.9, adult
CPT/HCPCS: 43239; 88305; J2250; J3010; J7799

== ENCOUNTER 2024-09-21 09:41 | Emergency (ER) | payer MEDICARE, OTHER ==
[2024-09-21] MEDS: Albuterol 0.083% 2.5 MG/3 ML Neb Soln NEB ONE ×2 (09:52→11:00)
[2024-09-21] MEDS: Dexamethasone 6 MG TABLET PO ONE (10:18)
[2024-09-21] MEDS: Magnesium Sulfate/Water Premix 2 GM in Premix Bag 1 BAG IV ONE (10:41)
== END 2024-09-21 11:43 | disposition home or self-care (01) ==
LOC: DL.ED 09:41
DX: J44.9 Chronic obstructive pulmonary disease, unspecified (principal); I10 Essential (primary) hypertension; K21.9 Gastro-esophageal reflux disease without esophagitis; M19.90 Unspecified osteoarthritis, unspecified site; E66.9 Obesity, unspecified; Z90.49 Acquired absence of other specified parts of digestive tract; Z87.891 Personal history of nicotine dependence; Z88.5 Allergy status to narcotic agent; Z88.6 Allergy status to analgesic agent; Z88.0 Allergy status to penicillin; Z88.8 Allergy status to other drugs, medicaments and biological substances; Z79.51 Long term (current) use of inhaled steroids; Z79.82 Long term (current) use of aspirin; Z79.899 Other long term (current) drug therapy
CPT/HCPCS: 96374; 99284; J3475; J8540; J7613-GY